=== PATIENT | female | born 1965 | race Caucasian/White ===

== ENCOUNTER 2023-11-24 10:40 | Outpatient (REF) | payer BC, SELFPAY ==
[2023-11-24 13:59] LABS: Basophils Absolute Auto 0.1 X10*3/uL (0.0-0.2); Basophils Percent Auto 0.9 % (0-2); Eosinophils Absolute Auto 0.1 X10*3/uL (0.0-0.4); Eosinophils Percent Auto 1.6 % (0-4); Hematocrit 41.2 % (37.0-47.0); Hemoglobin 13.4 g/dl (12.0-16.0); Imm Gran Abs Auto 0.03 X10*3/uL (0.00-0.03); Imm Gran Pct Auto 0.4 % (0.0-0.4); Lymphocytes Absolute Auto 1.7 X10*3/uL (1.2-4.9); Lymphocytes Percent Auto 22.4 % (20-40); MANUAL DIFF FLAG NO; Mean Corpuscular HGB Conc 32.5 g/dl (31.0-35.0); Mean Corpuscular Hemoglobin 30.2 pg (27.0-33.0); Mean Platelet Volume 10.8 fL (9.4-12.3); Monocytes Absolute Auto 0.4 X10*3/uL (0.1-1.2); Monocytes Percent Auto 5.5 % (2-11); Neutrophils Absolute Auto 5.2 x10*3/uL (2.0-8.3); Neutrophils Percent Auto 69.2 % (45-73); Platelet Count 232 X10*3/uL (160-400); Red Blood Count 4.43 X10*6/uL (4.20-5.50); Red Cell Distribution Width 13.2 % (11.0-16.0); White Blood Count 7.5 X10*3/uL (4.8-10.8)
[2023-11-24 14:37] LABS: Erythrocyte Sedimentation Rate 16 MM/HR (0-20)
[2023-11-24 14:53] LABS: Alanine Aminotransferase 34 U/L (0-31); Albumin Level 4.7 g/dL (3.5-5.0); Alkaline Phosphatase 87 U/L (39-117); Anion Gap 12 (12-20); Aspartate Amino Transferase 25 U/L (5-31); Bilirubin Total 0.3 mg/dL (0.0-1.0); Blood Urea Nitrogen 17 mg/dL (9-16); C Reactive Protein < 0.10 mg/dL (< or = 0.50); Calcium 10.2 mg/dL (8.4-10.2); Carbon Dioxide 24 mmol/L (22-29); Chloride 107 mmol/L (96-108); Estimated Glomerular Filt Rate 44; Glucose Random 91 mg/dL (60-115); Potassium 3.9 mmol/L (3.3-5.1); Sodium 139 mmol/L (135-145); Total Protein 7.9 g/dL (6.5-8.0)
[2023-11-25 09:05] LABS: HBS Num1 0.05 mIU/mL (0-7.99); HBc Num1 0.11 S/CO (0.00-0.79); HBsAGNum1 0.29 S/CO (0.00-0.99); Hepatitis A Antibody IgM 0.21 Index (0-0.79); Hepatitis B Core Antibody Nonreactive (Nonreactive); Hepatitis B Surface Antigen Negative (Negative); ~HepC Num1 0.31 S/CO (0.00-0.79); ~Hepatitis A Antibody IgM Nonreactive (Nonreactive); ~Hepatitis B Surface Antibody NONREACTIVE (Nonreactive); ~Hepatitis C Antibody Nonreactive (Nonreactive)
[2023-11-26 13:09] LABS: Cardiolipin IgG Ab <2.0 GPL-U/mL; Cardiolipin IgM Ab <2.0 MPL-U/mL
[2023-11-26 23:03] LABS: PTT (LAC) Screen 33 sec (<=40)
[2023-11-27 08:48] LABS: TS Negative Control Passed; TS Panel A 0; TS Panel B 0; TS Positive Control Passed; TSpotTB Negative (Negative)
[2023-11-27 11:03] LABS: Prot Elec - Albumin 4.2 g/dL (3.8-4.8); Prot Elec - Alpha1 0.3 g/dL (0.2-0.3); Prot Elec - Alpha2 0.8 g/dL (0.5-0.9); Prot Elec - Beta 1 0.5 g/dL (0.4-0.6); Prot Elec - Beta 2 0.4 g/dL (0.2-0.5); Prot Elec - Gamma 0.8 g/dL (0.8-1.7); Prot Elec - Total Protein 6.9 g/dL (6.1-8.1)
[2023-11-27 13:08] LABS: IgA 175 mg/dL (47-310); IgG 746 mg/dL (600-1640); IgM 169 mg/dL (50-300)
[2023-12-01 21:18] LABS: Beta-2 Glycoprotein IgA <2.0 U/mL (<20.0); Beta-2 Glycoprotein IgG <2.0 U/mL (<20.0); Beta-2 Glycoprotein IgM <2.0 U/mL (<20.0)
== END 2023-11-24 10:41 | disposition home or self-care (01) ==
LOC: HO.LAB 10:40
PROVIDERS: PCP Nurse Practitioner Family; Visit Provider Student in an Organized Health Care Education/Training Program
DX: Z11.7 Encounter for testing for latent tuberculosis infection (principal); Z11.59 Encounter for screening for other viral diseases; M34.1 CR(E)ST syndrome; I73.00 Raynaud's syndrome without gangrene; K21.9 Gastro-esophageal reflux disease without esophagitis; D68.61 Antiphospholipid syndrome; Z72.89 Other problems related to lifestyle
CPT/HCPCS: 36415; 80053; 82784; 84165; 85025; 85597; 85598; 85613; 85652; 85730; 86140; 86146; 86147; 86334; 86481; 86704; 86706; 86709; 86803; 87340

== ENCOUNTER 2023-11-24 10:40 | Outpatient (AMB) | payer BC, SELFPAY ==
--- NOTE | 2023-11-24 10:53 | A.OFFVIS_ITS ---
Intake Vital Signs 11/24/23 10:57 Height 5 ft 5 in Weight 158 lb 15.253 oz BMI 26.4 BP 106/64 Blood Pressure Location Rt brachial Position Sitting Comment Unable to measure O2 pt reports she has Raynauds. 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 Previously seen by Dr Valdez at [facility]. Denies fm hx of autoimmune disorders. 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 She states that she was diagnosed with Raynaud's affecting her hands and toes when she was in her 20s. She states that she has had GERD for many years. She had a esophageal procedure for her GERD, likely fundoplication around 2016. She states that she has had constipation for many years. She would have weeks of constipation and episodes with repeated vomiting. She would get admitted for a few days and symptoms would eventually resolved. However in 2019, she became septic and eventually had a total colectomy s/p ileostomy. Since then she has not had any significant diarrhea or constipation. She continues to have GERD. She has known history of Fish's esophagus. She takes omeprazole daily. She states that she sleeps using 2 pillows. Wakes up with a cough. She states that she has been a little more short of breath recently, her blood pressure was elevated and her PCP started her on lisinopril 10 mg daily with improvement of blood pressure and her shortness of breath. 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 She has pain both elbows, she has calcium deposits on both elbows, which are painful as well as calcium deposits on the left thumb and right ring finger. She states that she continues to have Raynaud's episodes. She uses gloves and glove warmers. Has not had any recent episodes of prolonged ischemia. She denies any skin thickening. She has been having some pain in the base of both thumbs and her knees. She is unaware of any family history of autoimmune rheumatic disease. She denies any weight loss or fevers. She had 2 pregnancies and no abortions or miscarriages. [facility] Medical History (Updated 11/24/23 @ 11:54 by Darryl Hood MD) Hypertension Barretts esophagus GERD (gastroesophageal reflux disease) Anxiety Migraine Raynaud phenomenon Calcinosis cutis CREST syndrome Ileostomy in place Surgical History History of fundoplication History of repair of hiatal hernia H/O total colectomy Family History Mother Hx of hysterectomy Father Diabetes Myocardial infarction, Onset Age: 60 Sister Malignant neoplasm of uterus Social History Household Members: Spouse Alcohol intake: current Alcohol intake frequency: a few times a week Patient Tobacco Use Status: Current everyday Tobacco user Cigarettes Per Day: 10 Current occupational status: employed 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 Reproductive History Menstrual Total pregnancies: 2 Number of Living Children: 2 Review of Systems Const Denies fever(s) and Denies weight loss Card Reports dyspnea on exertion Resp Reports dyspnea on exertion GI Reports heartburn Musc Reports arthralgias Skin/Breast Reports lesions and Reports non-healing lesions Psych Reports anxiety Physical Exam Vital Signs: Last Vital Signs BP 106/64 11/24/23 10:57 BMI result Body Mass Index 26.4 Const General: cooperative, healthy appearing and comfortable Nutritional Appearance: overweight Orientation/consciousness: patient oriented x3 Limitations: no limitations HEENT Head: Yes normocephalic and Yes atraumatic Mouth: moist mucous membranes Resp Effort & Inspection: normal respiratory effort and able to speak in complete sentences Auscultation: clear to auscultation bilaterally Cardio Rate: regular rate Rhythm: regular rhythm GI Other: Ileostomy Inspection: No distended Palpation (GI): Soft to palpation and nontender Skin Other: Multiple telangiectasias Calcinosis cutis on elbows, right ring finger and left thumb Neuro General: patient oriented x3 Extrem Other: Mild dusky discoloration of hands but her fingers are warm. No active synovitis Mild pain at the 1st CMC joint on the right. No active synovitis No significant skin thickening. Normal nailfold capillaroscopy Results Reviewed Results Reviewed: Labs 11/2021? SHIVA 1-12 80 centromere pattern? SHIVA 1-80 dense fine speckled ELBA negative Centromere antibody positive Skin biopsy 11/2021: calcinosis cutis Labs 12/2021? SSA/SSB/CCP/Rajwinder 1/RF/Ragland/MANAGER OF DEVELOPMENT negative? Scleroderma 12 antibody panel all negative except for centromere A and B C3 normal? C4 normal LDL 118? 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 Discussed nature of scleroderma and different management strategies. Check labs today. With regard to her calcinosis cutis. Will try diltiazem. Will reduce lisinopril to 5 mg daily and start diltiazem 30 mg daily. Advised patient to check her blood pressure before and after starting diltiazem. All us if she develops any lightheadedness or side effects. Advised patient to soak her fingers are warm water when calcium deposits are coming out. Use cloth based Band-Aids. Use Silvadene on any open wounds Discussed risk of pulmonary arterial hypertension and interstitial lung disease with scleroderma. Patient had CT chest, 2D echo and PFTs back in 2021 at [facility]. Will request those records. (2) Raynaud phenomenon: Comment: since her 20s Code(s): I73.00 - Raynaud's syndrome without gangrene Qualifiers: Raynaud?s-associated gangrene presence: without gangrene Qualified Code(s): I73.00 - Raynaud's syndrome without gangrene Plan: Discussed conservative management for Raynaud's such as keeping core and extremity temperature warm. Wear gloves and glove warmers, consider heated gloves. (3) GERD (gastroesophageal reflux disease): Code(s): K21.9 - Gastro-esophageal reflux disease without esophagitis Plan: Advised patient to sleep more elevated. Discussed risk of aspiration with esophageal dysmotility. Continue with omeprazole daily. Can consider increasing it to twice daily the future Plan I spent 65 minutes reviewing patient's chart, evaluating patient, ordering diagnostic workup, counseling patient and documenting in the chart Orders: Orders Complete Blood Count Auto Diff Today M34.1 - CR(E)ST syndrome C Reactive Protein Today M34.1 - CR(E)ST syndrome Erythrocyte Sedimentation Rate Today M34.1 - CR(E)ST syndrome Beta-2 Glycoprotein Antibody Today D68.61 - Antiphospholipid syndrome Cardiolipin Antibodies Today D68.61 - Antiphospholipid syndrome Comprehensive Met. Panel Today M34.1 - CR(E)ST syndrome Hepatitis A,B,C Profile Today Z11.59 - Encounter for screening for other viral diseases T Spot TB Today Z11.7 - Encounter for testing for latent tuberculosis infection Protein Electrophoresis, Serum Today M34.1 - CR(E)ST syndrome Immunofixation Pnl, Serum Today M34.1 - CR(E)ST syndrome Lupus Anticoagulant Panel Today D68.61 - Antiphospholipid syndrome Medications: New lisinopril 5 mg PO DAILY 60 tabs 1RF diltiazem HCl 30 mg PO Q8H 30 tabs 1RF Coding Level of Care Code New Pt Level 5 (61679) Diagnoses CREST syndrome M34.1 Raynaud's phenomenon without gangrene I73.00 Raynaud?s-associated gangrene presence: without gangrene GERD (gastroesophageal reflux disease) K21.9
[2023-11-24 10:57] VITALS: BP 106/64; BMI 26.4
== END 2023-11-24 11:42 | disposition home or self-care (01) ==
PROVIDERS: PCP Nurse Practitioner Family; Visit Provider Student in an Organized Health Care Education/Training Program
DX: M34.1 CR(E)ST syndrome (principal); I73.00 Raynaud's syndrome without gangrene; K21.9 Gastro-esophageal reflux disease without esophagitis
CPT/HCPCS: 99205

== ENCOUNTER 2024-01-25 15:46 | Outpatient (AMB) | payer BC, SELFPAY ==
--- NOTE | 2024-01-25 15:47 | A.OFFVIS_ITS ---
Intake Vital Signs 01/25/24 15:48 Height 5 ft 5 in Weight 159 lb 2.78 oz BMI 26.5 BP 114/60 Blood Pressure Location Rt brachial Position Sitting Pulse 100 Pulse Source Auscultation Temp 97.5 F Temp Source Skin Intake Visit Reasons: CREST Intake Note: Patient last seen 11/24/23 presents today for follow up and test results. 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 Accompanied by: Self / Same As Patient Allergies minocycline Allergy (Mild, Verified 01/25/24 15:48) Hives sulfamethoxazole [From Bactrim] Allergy (Mild, Verified 01/25/24 15:48) Rash trimethoprim [From Bactrim] Allergy (Mild, Verified 01/25/24 15:48) Rash Sulfa (Sulfonamide Antibiotics) Allergy (Verified 01/25/24 15:48) Rash Medication List - Last Reconciled 01/25/24 by Darryl Hood MD atorvastatin 20 mg PO DAILY colchicine 0.6 mg PO BID lisinopril 5 mg (1/2 x 10 mg) PO DAILY omeprazole 40 mg PO DAILY sertraline 50 mg PO DAILY HPI HPI Comments History of Present Illness Details 58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 Started taking diltiazem after last visit. She did not feel any difference. She continues to have significant calcinosis, she believes it is worsening. The 1 on her left elbow hurts when her elbow rubs against her jacket and when moving her left elbow. She has a piece of calcinosis trying to get out of her right hand finger. 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 She states that she was diagnosed with Raynaud's affecting her hands and toes when she was in her 20s. She states that she has had GERD for many years. She had a esophageal procedure for her GERD, likely fundoplication around 2017. She states that she has had constipation for many years. She would have weeks of constipation and episodes with repeated vomiting. She would get admitted for a few days and symptoms would eventually resolved. However in 2019, she became septic and eventually had a total colect landy s/p ileostomy. Since then she has not had any significant diarrhea or constipation. She continues to have GERD. She has known history of Fish's esophagus. She takes omeprazole daily. She states that she sleeps using 2 pillows. Wakes up with a cough. She states that she has been a little more short of breath recently, her blood pressure was elevated and her PCP started her on lisinopril 10 mg daily with improvement of blood pressure and her shortness of breath. 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 She has pain both elbows, she has calcium deposits on both elbows, which are painful as well as calcium deposits on the left thumb and right ring finger. She states that she continues to have Raynaud's episodes. She uses gloves and glove warmers. Has not had any recent episodes of prolonged ischemia. She denies any skin thickening. She has been having some pain in the base of both thumbs and her knees. She is unaware of any family history of autoimmune rheumatic disease. She denies any weight loss or fevers. She had 2 pregnancies and no abortions or miscarriages. [facility] Medical History Hypertension Barretts esophagus GERD (gastroesophageal reflux disease) Anxiety Migraine Raynaud phenomenon Calcinosis cutis CREST syndrome Ileostomy in place Surgical History History of fundoplication History of repair of hiatal hernia H/O total colectomy Family History Mother Hx of hysterectomy Father Diabetes Myocardial infarction, Onset Age: 60 Sister Malignant neoplasm of uterus Social History Household Members: Spouse Alcohol intake: current Alcohol intake frequency: a few times a week Patient Tobacco Use Status: Current everyday Tobacco user Cigarettes Per Day: 10 Current occupational status: employed 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 Reports arthralgias Skin/Breast Reports lesions and Reports non-healing lesions Physical Exam Vital Signs: Last Vital Signs Temp 97.5 F 01/25/24 15:48 Pulse 100 01/25/24 15:48 BP 114/60 01/25/24 15:48 BMI result Body Mass Index 26.5 Const General: cooperative, healthy appearing and comfortable Nutritional Appearance: overweight Orientation/consciousness: patient oriented x3 Limitations: no limitations HEENT Head: Yes normocephalic and Yes atraumatic Mouth: moist mucous membranes Resp Effort & Inspection: normal respiratory effort and able to speak in complete sentences Auscultation: clear to auscultation bilaterally Cardio Rate: regular rate Rhythm: regular rhythm GI Other: Ileostomy Inspection: No distended Palpation (GI): Soft to palpation and nontender Skin Other: Multiple telangiectasias Calcinosis cutis on elbows, right ring finger and left thumb Neuro General: patient oriented x3 Extrem Other: Mild dusky discoloration of hands but her fingers are warm. No active synovitis Mild pain at the 1st CMC joint on the right. No active synovitis No significant skin thickening. Normal nailfold capillaroscopy Results Reviewed Results Reviewed: Labs 11/2021? SHIVA 1-12 80 centromere pattern? SHIVA 1-80 dense fine speckled ELBA negative Centromere antibody positive Skin biopsy 11/2021: calcinosis cutis Labs 12/2021? SSA/SSB/CCP/Rajwinder 1/RF/Ragland/SHERIFF DETECTIVE negative? Scleroderma 12 antibody panel all negative except for centromere A and B C3 normal? C4 normal LDL 118? 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 Discussed nature of scleroderma and different management strategies. Patient did not improve with diltiazem. She was allergic to minocycline. Will DC diltiazem and increase lisinopril back to 10 mg daily. Start colchicine 0.6 mg Twice daily, reduce to once daily dose if she develops GI upset/loose stools. Advised patient to soak her fingers are warm water when calcium deposits are coming out. Use cloth based Band-Aids. Use Silvadene on any open wounds Discussed risk of pulmonary arterial hypertension and interstitial lung disease with scleroderma. Patient had CT chest, 2D echo and PFTs back in 2021 which were unremarkable except for mildly reduced DLCO not adjusted for hemoglobin. Will repeat 2D echo and PFTs to screen for ILD/PAH. (2) Raynaud phenomenon: Comment: since her 20s Code(s): I73.00 - Raynaud's syndrome without gangrene Qualifiers: Raynaud?s-associated gangrene presence: without gangrene Qualified Co de(s): I73.00 - Raynaud's syndrome without gangrene Plan: Discussed conservative management for Raynaud's such as keeping core and ex tremity temperature warm. Wear gloves and glove warmers, consider heated gloves. Plan I spent 25 minutes reviewing patient's chart, evaluating patient, ordering diagnostic workup, counseling patient and documenting in the chart Orders: Orders CA echo transthoracic complete Today M34.1 - CR(E)ST syndrome PFT pulmonary function test Today M34.1 - CR(E)ST syndrome, R06.02 - Shortness of breath Medications: New colchicine 0.6 mg PO BID 60 tabs 2RF Changed From lisinopril 5 mg PO DAILY 90 tabs 0RF To lisinopril 5 mg (1/2 x 10 mg) PO DAILY 90 tabs 0RF Refilled lisinopril 5 mg PO DAILY 90 tabs 0RF Discontinued diltiazem HCl Discontinued Reason: Doctor's Order 30 mg PO Q8H 30 tabs 1RF Coding Level of Care Code Est Pt Level 4 (27266) Diagnoses CREST syndrome M34.1 Raynaud's phenomenon without gangrene I73.00 Raynaud?s-associated gangrene presence: without gangrene
[2024-01-25 15:48] VITALS: BP 114/60; PULSE 100; TEMP 36.4; BMI 26.5
== END 2024-01-25 16:20 | disposition home or self-care (01) ==
PROVIDERS: PCP Nurse Practitioner Family; Visit Provider Student in an Organized Health Care Education/Training Program
DX: M34.1 CR(E)ST syndrome (principal); I73.00 Raynaud's syndrome without gangrene
CPT/HCPCS: 99214

== ENCOUNTER → 2024-01-25 15:46 | Outpatient (BNVA) | payer BC, SELFPAY | PROVIDERS: PCP Nurse Practitioner Family; Visit Provider Student in an Organized Health Care Education/Training Program ==

== ENCOUNTER → 2024-04-22 07:48 | Outpatient (REF) | payer BC, SELFPAY ==
--- NOTE | 2024-04-22 07:51 | CA_ITS ---
Transthoracic Echocardiogram Patient (Last, First, Middle): Sherrie Trejo, Gender: Female Date of : 1965 Age: 58 Procedure Date: 04/22/2024 Procedure Type: Transthoracic Echocardiogram Location: OP Height: 165.1 cm Weight: 70.31 kg BSA: 1.78 m2 Heart Rate: 68 bpm BP: 110 / 70 mmHg Paper Cleaner: SUZI Referring MD: Darryl Hood MD Symptoms: M34.1 - CR(E)ST syndrome Study Quality: Fair ECG Rhythm: Sinus Conclusions: - Normal left ventricular size and systolic function. There is mildly increased left ventricular wall thickness. The visually estimated ejection fraction is between 55-60%. - Normal right ventricular cavity size and systolic function. - Normal global longitudinal strain -18%. Findings Left Ventricle Normal left ventricular size and systolic function. There is mildly increased left ventricular wall thickness. The visually estimated ejection fraction is between 55-60%. There is no evidence of regional wall motion abnormalities. Diastolic function is normal for age. Right Ventricle Normal right ventricular cavity size and systolic function. Atria The left atrium is normal in size. The right atrium is normal in size. Aortic Valve Normal aortic valve structure and function. There is no aortic valve stenosis. There is no aortic valve regurgitation. Mitral Valve The mitral valve appears normal. There is no mitral valve regurgitation. There is no mitral valve stenosis. Pulmonic Valve The pulmonic valve is likely normal. Tricuspid Valve Normal tricuspid valve structure. There is trace tricuspid valve regurgitation. Tricuspid regurgitation envelope is inadequate for calculation of right ventricular systolic pressure. Normal right atrial pressure. Great Vessels All visible segments of the aorta are normal in size. The visualized portions of the pulmonary artery and branches are normal. Venous The inferior vena cava is normal in size and collapses greater than 50% with inspiration. Pericardium/Pleural Prominent epicardial adipose tissue noted. There is no evidence of pericardial effusion. Prior Study Comparison No prior study available for comparison. Measurements 2D Linear Measurements IVSd: 1.20 0.6-0.9/0.6-1.0 cm LVIDd: 3.21 3.9-5.3/4.2-5.9 cm LVIDd Index: 1.80 2.4-3.2/2.2-3.1 cm/m2 LVIDs: 1.81 2.0-3.6 cm LVPWd: 1.31 0.7-1.1 cm LA Diam: 3.00 2.7-3.8/3.0-4.0 cm LAIDs Index: 1.69 1.5-2.3 cm/m2 LV Mass: 160.24 67-162/88-224 g LV Mass Index: 90.02 43-95/49-115 g/m2 LVOT Diam: 2.00 3.0+(-)1.3 cm 2D Systolic Function EF 4C: 65.10 >55% EF 2C: 59.40 >55% EF BiP: 63.10 >55% Mitral Valve MV Pk E: 0.82 MV PK A: 0.84 MV Decel Time: 255.00 E/A: 1.00 E'Lateral: 9.57 E'Medial: 7.40 E/E' Med: 11.10 E/E' Lat: 8.50 PHT: 75.00 MVA PHT: 2.93 Decel [place]: 3.21 Aortic Valve AoV Pk Buck: 1.07 AoV Mn Buck: 0.79 AoV VTI: 0.26 AoV Pk Grad: 5.00 Aov Mn Grad: 3.00 MARIAN Cont.VTI: 2.46 LVOT LVOT Pk Buck: 0.98 LVOT Mn Buck: 0.63 LVOT VTI: 0.21 LVOT Pk Grad: 4.00 LVOT Mn Grad: 2.00 LVOT Diam: 2.00 LVOT Area: 3.14 Diastolic Function MV Pk E: 0.82 MV Pk A: 0.84 E/A: 1.00 E'Medial: 7.40 E/E' Med: 11.10 E' Laterial: 9.57 E/E' Lat: 8.50 Right Ventricle TAPSE (mm): 16.90 TVS' Buck: 8.70 Tricuspid Valve RA Press: 3.00 Great Vessels Aorta Sinus of Valsalva: 3.00 2.0-3.5 cm Ao Asc: 2.90 2.1-3.4 cm Pulmonary Valve PV Pk Buck: 0.81 Peak PV Grad: 3.00 Updated in Other Vendor System with Status of Final Jose D Boudreaux MD electronically signed on 04/23/2024 10:59:30 PM with status of Final
== END ==
LOC: HO.CARD 07:48
PROVIDERS: PCP Nurse Practitioner Family; Visit Provider Student in an Organized Health Care Education/Training Program
DX: M34.1 CR(E)ST syndrome (principal)
CPT/HCPCS: 93306; 93356

== ENCOUNTER → 2024-04-22 07:51 | Outpatient (BNV) | payer BC, SELFPAY | PROVIDERS: PCP Nurse Practitioner Family; Visit Provider Internal Medicine Cardiovascular Disease | DX: M34.1 CR(E)ST syndrome (principal) | CPT/HCPCS: 93306 ==

== ENCOUNTER 2024-05-03 07:27 | Outpatient (AMB) | payer BC, SELFPAY ==
[2024-05-03 07:45] VITALS: BP 108/68; PULSE 80; BMI 26.1
--- NOTE | 2024-05-03 07:45 | A.OFFVIS_ITS ---
Vital Signs 05/03/24 07:45 Height 5 ft 5 in Weight 156 lb 15.506 oz BMI 26.1 BP 108/68 Blood Pressure Location Rt brachial Position Sitting Pulse 80 Pulse Source Pulse Oximeter Intake Visit Reasons: CREST/LVM Intake Note: Patient last seen 01/25/24 presents today for follow up. 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 She continues to be symptomatic from her calcinosis cutis especially at the left elbow. She gets aching throbbing pain the base of her right thumb. Usually worse at night. She is doing well otherwise. Denies any cough or shortness of breath. 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 She states that she was diagnosed with Raynaud's affecting her hands and toes when she was in her 20s. She states that she has had GERD for many years. She had a esophageal procedure for her GERD, likely fundoplication around 2017. She states that she has had constipation for many years. She would have weeks of constipation and episodes with repeated vomiting. She would get admitted for a few days and symptoms would eventually resolved. However in 2019, she became septic and eventually had a total colectomy s/p ileostomy. Since then she has not had any significant diarrhea or constipation. She continues to have GERD. She has known history of Fish's esophagus. She takes omeprazole daily. She states that she sleeps using 2 pillows. Wakes up with a cough. She states that she has been a little more short of breath recently, her blood pressure was elevated and her PCP started her on lisinopril 10 mg daily with improvement of blood pressure and her shortness of breath. 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 She has pain both elbows, she has calcium deposits on both elbows, which are painful as well as calcium deposits on the left thumb and right ring finger. She states that she continues to have Raynaud's episodes. She uses gloves and glove warmers. Has not had any recent episodes of prolonged ischemia. She denies any skin thickening. She has been having some pain in the base of both thumbs and her knees. She is unaware of any family history of autoimmune rheumatic disease. She denies any weight loss or fevers. She had 2 pregnancies and no abortions or miscarriages. [facility] Medical History Hypertension Barretts esophagus GERD (gastroesophageal reflux disease) Anxiety Migraine Raynaud phenomenon Calcinosis cutis CREST syndrome Ileostomy in place Surgical History History of fundoplication History of repair of hiatal hernia H/O total colectomy Family History Mother Hx of hysterectomy Father Diabetes Myocardial infarction, Onset Age: 60 Sister Malignant neoplasm of uterus Social History Household Members: Spouse Alcohol intake: current Alcohol intake frequency: a few times a week Patient Tobacco Use Status: Current everyday Tobacco user Cigarettes Per Day: 10 Current occupational status: employed 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 Reproductive History Menstrual Total pregnancies: 2 Number of Living Children: 2 Review of Systems Card Denies dyspnea Resp Denies cough and Denies dyspnea Musc Reports arthralgias Skin/Breast Reports lesions and Reports non-healing lesions Physical Exam Vital Signs: Last Vital Signs Pulse 80 05/03/24 07:45 BP 108/68 05/03/24 07:45 BMI result Body Mass Index 26.1 Const General: cooperative, healthy appearing and comfortable Nutritional Appearance: overweight Orientation/consciousness: patient oriented x3 Limitations: no limitations HEENT Head: Yes normocephalic and Yes atraumatic Mouth: moist mucous membranes Resp Effort & Inspection: normal respiratory effort and able to speak in complete sentences Auscultation: clear to auscultation bilaterally Cardio Rate: regular rate Rhythm: regular rhythm GI Other: Ileostomy Inspection: No distended Palpation (GI): Soft to palpation and nontender Skin Other: Multiple telangiectasias Calcinosis cutis on elbows, right ring finger and left thumb Neuro General: patient oriented x3 Extrem Other: Mild dusky discoloration of hands but her fingers are warm. No active synovitis Mild pain at the 1st CMC joint on the right. No active synovitis No significant skin thickening. Normal nailfold capillaroscopy Results Reviewed Results Reviewed: Labs 11/2021? SHIVA 1-12 80 centromere pattern? SHIVA -80 dense fine speckled ELBA negative Centromere antibody positive Skin biopsy 11/2021: calcinosis cutis Labs 12/2021? SSA/SSB/CCP/Rajwinder 1/RF/Ragland/MERCHANDISE DELIVERER negative? Scleroderma 12 antibody panel all negative except for centromere A and B C3 normal? C4 normal LDL 118? 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 Patient is doing well overall. What seems to be most troublesome is her calcinosis cutis Patient did not improve with diltiazem. She was allergic to minocycline. Also did not improve with colchicine. I will refer patient to hand surgeon for further evaluation Discussed risk of pulmonary arterial hypertension and interstitial lung disease with scleroderma. Patient had CT chest, 2D echo and PFTs back in 2021 which were unremarkable except for mildly reduced DLCO not adjusted for hemoglobin. 2D echo 04/2024 unremarkable with no signs suggestive of pulmonary arterial hypertension. PFTs not done. Patient will try to get it done in [facility] before next visit in 6 months (2) Raynaud phenomenon: Comment: since her 20s Code(s): I73.00 - Raynaud's syndrome without gangrene Category: Medical Qualifiers: Raynaud?s-associated gangrene presence: without gangrene Qualified Code(s): I73.00 - Raynaud's syndrome without gangrene Plan: Discussed conservative management for Raynaud's such as keeping core and extremity temperature warm. Wear gloves and glove warmers, consider heated gloves. (3) Osteoarthritis of thumbs, bilateral: Code(s): M18.0 - Bilateral primary osteoarthritis of first carpometacarpal joints Category: Medical Plan: Voltaren gel trial Plan I spent 25 minutes reviewing patient's chart, evaluating patient, ordering diagnostic workup, counseling patient and documenting in the chart Orders: Orders Complete Blood Count Auto Diff 6 Months M34.1 - CR(E)ST syndrome C Reactive Protein 6 Months M34.1 - CR(E)ST syndrome Uric Acid 6 Months M34.1 - CR(E)ST syndrome Comprehensive Met. Panel 6 Months M34.1 - CR(E)ST syndrome Creatine Kinase Total 6 Months M34.1 - CR(E)ST syndrome Erythrocyte Sedimentation Rate 6 Months M34.1 - CR(E)ST syndrome Referrals Hand Surgery Referral L94.2 - Calcinosis cutis Coding Level of Care Code Est Pt Level 4 (90479) Diagnoses CREST syndrome M34.1 Raynaud's phenomenon without gangrene I73.00 Raynaud?s-associated gangrene presence: without gangrene Osteoarthritis of thumbs, bilateral M18.0
== END 2024-05-03 08:07 | disposition home or self-care (01) ==
PROVIDERS: PCP Nurse Practitioner Family; Visit Provider Student in an Organized Health Care Education/Training Program
DX: M34.1 CR(E)ST syndrome (principal); I73.00 Raynaud's syndrome without gangrene; M18.0 Bilateral primary osteoarthritis of first carpometacarpal joints
CPT/HCPCS: 99214

== ENCOUNTER → 2024-05-03 07:27 | Outpatient (BNVA) | payer BC, SELFPAY | PROVIDERS: PCP Nurse Practitioner Family; Visit Provider Student in an Organized Health Care Education/Training Program ==

== ENCOUNTER 2024-06-15 08:49 | Outpatient (REF) | payer BC, SELFPAY ==
--- NOTE | ~2024-06-15 | XR_ITS ---
EXAMINATION: XR BILATERAL HANDS CLINICAL INDICATION: Patient states pain in bilateral thumbs and right hand 4th digit. TECHNIQUE: 4 views of the left hand. 6 views of the right hand and thumb. FINDINGS: LEFT HAND: Multiple [id number] foci of conglomerate densities, possibly calcification, in the soft tissues of the mid to distal aspect of the left thumb. Grouped tiny punctate radiodense foci in the soft tissues of the 2nd digit distal tuft. Small 2 mm density in the soft tissues along the volar aspect of the metacarpals. Moderate degenerative changes in the 1st carpometacarpal joint with joint space narrowing and hypertrophic change. RIGHT HAND: Moderate degenerative changes in the 1st carpometacarpal joint with joint space narrowing and hypertrophic change. Multiple conglomerate densities, possibly calcifications, most notable in the soft tissues adjacent to the distal tuft of the right 1st and 4th digits with smaller scattered calcifications also seen adjacent to the 2nd digit distal tuft. XR/XR hand LT min 3V IMPRESSION: Conglomerate densities, possibly calcifications most notable in the soft tissues adjacent to the distal tuft of the right 1st and 4th digits and left thumb. Differential considerations include trauma, collagen vascular disease, crystal deposition disease, infection or other etiology. Rheumatology consultation recommended for further management. Electronically signed by: Ariana Gonsales MD 07/12/2024 02:07 PM EDT RP
--- NOTE | ~2024-06-15 | XR_ITS ---
EXAMINATION: XR BILATERAL HANDS CLINICAL INDICATION: Patient states pain in bilateral thumbs and right hand 4th digit. TECHNIQUE: 4 views of the left hand. 6 views of the right hand and thumb. FINDINGS: LEFT HAND: Multiple wzqtqhpk-fm-mirbb foci of conglomerate densities, possibly calcification, in the soft tissues of the mid to distal aspect of the left thumb. Grouped tiny punctate radiodense foci in the soft tissues of the 2nd digit distal tuft. Small 2 mm density in the soft tissues along the volar aspect of the metacarpals. Moderate degenerative changes in the 1st carpometacarpal joint with joint space narrowing and hypertrophic change. RIGHT HAND: Moderate degenerative changes in the 1st carpometacarpal joint with joint space narrowing and hypertrophic change. Multiple conglomerate densities, possibly calcifications, most notable in the soft tissues adjacent to the distal tuft of the right 1st and 4th digits with smaller scattered calcifications also seen adjacent to the 2nd digit distal tuft. XR/XR hand RT min 3V IMPRESSION: Conglomerate densities, possibly calcifications most notable in the soft tissues adjacent to the distal tuft of the right 1st and 4th digits and left thumb. Differential considerations include trauma, collagen vascular disease, crystal deposition disease, infection or other etiology. Rheumatology consultation recommended for further management. Electronically signed by: Ariana Gonsales MD 07/12/2024 02:07 PM EDT RP
== END 2024-06-15 08:50 | disposition home or self-care (01) ==
LOC: HO.HOSX 08:49
PROVIDERS: PCP Nurse Practitioner Family; Visit Provider Orthopaedic Surgery
DX: M79.641 Pain in right hand (principal); M79.642 Pain in left hand
CPT/HCPCS: 73130

== ENCOUNTER 2024-06-15 09:17 | Outpatient (AMB) | payer BC, SELFPAY ==
--- NOTE | 2024-06-15 09:20 | MHC.OFFVIS ---
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 Patient reports numbness and tingling when her hands are cold. Denies locking on finger. Patient describes pain as not bad, on most days. Patient states her hands hurt the most when they are cold. Patient reports hx Raynauds. Denies any prior injuries or surgeries. 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 She complains primarily of painful growths to her bilateral elbows. She finds herself limited in elbow ROM by pain occasionally. She also complains of painful growths to her bilateral hands, particularly the left thumb & right ring finger. She says these cause her pain, and is worse when cold. She has CREST syndrome & Raynaud's disease. She follows with Rheumatology for these symptoms, and she found no improvement from PO medication for her growths. She is a smoker. She has a Hx of a biopsy in the past, and she says her removed growth did not return. She describes herself as a peanut picker and says she will often pick at her growths & scabs when she finds them more uncomfortable. [facility] Medical History Hypertension Barretts esophagus GERD (gastroesophageal reflux disease) Anxiety Migraine Raynaud phenomenon Calcinosis cutis CREST syndrome Ileostomy in place Surgical History History of fundoplication History of repair of hiatal hernia H/O total colectomy Family History Mother Hx of hysterectomy Father Diabetes Myocardial infarction, Onset Age: 60 Sister Malignant neoplasm of uterus Social History (Updated 06/15/24 @ 09:25 by CHRIS Soares) Household Members: Spouse Alcohol intake: current Alcohol intake frequency: a few times a week Patient Tobacco Use Status: Current everyday Tobacco user Cigarettes Per Day: 10 Current occupational status: employed 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, 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 Review of Systems Const All systems reviewed & are unremarkable except as noted in HPI and below Physical Exam Vital Signs: BMI result Body Mass Index 26.0 Const General: cooperative, healthy appearing and no acute distress Orientation/consciousness: patient oriented x3 HEENT Head: Yes normocephalic and Yes atraumatic Eyes EOM: EOMs intact bilaterally Resp Effort & Inspection: normal respiratory effort and able to speak in complete sentences Cardio Jugular venous distension: no JVD Skin General skin exam: turgor normal Rashes: no rashes Neuro General: patient oriented x3 Extrem Other: Evaluation of Left Upper Extremity: The patient is alert, oriented, and in no acute distress Neuro: Median, Ulnar, Radial nerves motor and sensory intact and sensation is normal to the tips of all digits Vascular: Cap refill brisk ROM: She can make a fist and extend all her digits No locking or catching Skin: No lacerations or abrasions. General: No Ecchymosis. No Erythema or evidence of infection. There is an area of calcification to the left elbow, measuring 3cm length x 1.5cm width, and protruding ~1cm, at the proximal aspect of the ulna There is a palpable mass in the left thumb pad, at the tip, and along the volar ulnar aspect at the proximal phalanx level Of note, the skin at tip of the olecranon very tender, no discrete mass, I would likely not be going into the tip of the skin of the olecranon, instead just distal to this area for mass removal Radiographs: Three views of the left hand were taken today and reviewed by me in clinic. She has calcifications consistent with calcinosis cutis primarily involving the distal aspect of the thumb, as well as the volar ulnar area of the thumb just proximal to the IP joint. There are also some calcifications, though much smaller, the tip of the index finger. No fractures or dislocations. Psych Appearance: grossly normal Affect: normal affect Attitude: cooperative Assessment & Plan Assessment & Plan (1) Calcinosis cutis: Code(s): L94.2 - Calcinosis cutis Category: Medical (2) CREST syndrome: Comment: Raynaud's since 20s, calcinosis cutis, esophageal dysmotility, telangiectasias +++ centromere antibody Code(s): M34.1 - CR(E)ST syndrome Category: Medical (3) Raynaud phenomenon: Comment: since her 20s Code(s): I73.00 - Raynaud's syndrome without gangrene Category: Medical Qualifiers: Raynaud?s-associated gangrene presence: without gangrene Qualified Code(s): I73.00 - Raynaud's syndrome without gangrene Plan Assessment & Plan: 1. Left proximal forearm Calcinosis cutis 2. Left thumb calcinosis cutis x2 3. Right forearm and hand Calcinosis cutis Affecting bilateral elbows & hands Her primary complaint is of her left elbow and thumb I educated her about this condition I discussed operative and non-operative treatment options The patient would like to proceed with surgery, beginning with the left side. We can discuss treatment for her right upper extremity at a later date The risks and benefits of operative treatment were discussed with the patient and the patient wishes to proceed with surgery. These risks include, but are not limited to risk of damage to blood vessels, nerves, tendons, infection, recurrence, incomplete relief of preoperative symptoms, persistent pain, possible need for further surgery and the risks associated with regional blocks and anesthesia. The plan is to take the patient to the operating room sometime in the next few weeks for the following procedures: 1. Left proximal forearm mass excision, under general 2. Left thumb mass excisions X2, under general 3. Possible left thumb neurolysis (ulnar digital nerve), under general All of the preoperative paperwork including the consent was reviewed today. All the patient's questions were answered. The patient understands that they will be contacted by our surgery attendant soon to schedule this procedure. She would like this done in the latter half of She denies Diabetes, blood thinners, asthma, heart, lung, kidney issues She has CREST syndrome & Raynaud's syndrome, and follows with Rheumatology She is a smoker, I discussed the effects & risks of smoking, particularly in regard to her Calcinosis cutis & Raynaud's disease, including possible necrosis. She expressed understanding and says she will work towards quitting smoking prior to surgery. Please note that greater than 40 minutes was spent with this patient going over the history, evaluating the patient and radiographs, formulating possible treatment options, discussing them with the patient, and documenting the visit. Scribed for Sandy Gallo MD by Colby Kilgore, medical imaging technician, on 06/15/24 at 9:30 AM, EST. Orders: Orders XR hand RT min 3V Today M79.641 - Pain in right hand XR hand LT min 3V Today M79.642 - Pain in left hand Coding Level of Care Code New Pt Level 4 (59803) Diagnoses Calcinosis cutis L94.2 CREST syndrome M34.1 Raynaud's phenomenon without gangrene I73.00 Raynaud?s-associated gangrene presence: without gangrene
[2024-06-15 09:22] VITALS: BMI 26.0
== END 2024-06-15 09:59 | disposition home or self-care (01) ==
PROVIDERS: PCP Nurse Practitioner Family; Visit Provider Orthopaedic Surgery
DX: M34.1 CR(E)ST syndrome (principal); I73.00 Raynaud's syndrome without gangrene
CPT/HCPCS: 99204

== ENCOUNTER 2024-09-21 11:13 | Outpatient (AMB) | payer BC, SELFPAY ==
[2024-09-21 11:32] VITALS: BMI 26.0
--- NOTE | 2024-09-21 11:32 | MHC.OFFVIS ---
Vital Signs 09/21/24 11:32 Height 5 ft 5 in Weight 156 lb BMI 26.0 Intake Visit Reasons: Preop LT thumb exc/forearm exc 10/03/24 AR Intake Note: Sherrie is a 59 yo left hand dominant female who presents today pre-operatively for left thumb mass excision and left proximal forearm mass excision scheduled for 10/03/[address] Gallo. Consents reviewed and signed in office today. Allergies minocycline Allergy (Mild, Verified 09/21/24 11:33) Hives sulfamethoxazole [From Bactrim] Allergy (Mild, Verified 09/21/24 11:33) Rash trimethoprim [From Bactrim] Allergy (Mild, Verified 09/21/24 11:33) Rash Sulfa (Sulfonamide Antibiotics) Allergy (Verified 09/21/24 11:33) Rash HPI HPI Preop LT thumb exc/forearm exc 10/03/24 AR: Details: Sherrie is a 59 year old right hand dominant woman who returns to discuss her left upper extremity calcinosis cutis. She complains primarily of painful growths to her bilateral elbows. She finds herself limited in elbow ROM by pain occasionally. She also complains of painful growths to her bilateral hands, particularly the left thumb & right ring finger. She says these cause her pain, and is worse when cold. She has CREST syndrome & Raynaud's disease. She follows with Rheumatology for these symptoms, and she found no improvement from PO medication for her growths. She is a smoker, and says she has been working on reducing her use, but ays this has been a struggle. She has a Hx of a biopsy in the past, and she says her removed growth did not return. 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 [facility] Medical History Hypertension Barretts esophagus GERD (gastroesophageal reflux disease) Anxiety Migraine Raynaud phenomenon Calcinosis cutis CREST syndrome Ileostomy in place Surgical History History of fundoplication History of repair of hiatal hernia H/O total colectomy Family History Mother Hx of hysterectomy Father Diabetes Myocardial infarction, Onset Age: 60 Sister Malignant neoplasm of uterus Social History (Updated 06/15/24 @ 09:25 by CHRIS Soares) Household Members: Spouse Alcohol intake: current Alcohol intake frequency: a few times a week Patient Tobacco Use Status: Current everyday Tobacco user Cigarettes Per Day: 10 Current occupational status: employed 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 General: No Ecchymosis. No Erythema or evidence of infection. There is an area of calcification to the left Olecranon point, ~1cm in diameter, and directly adherant to the skin There is an area of calcification to the left elbow, measuring 3cm length x 1.5cm width, and protruding ~1cm, at the proximal aspect of the ulna There is a palpable mass in the left thumb pad, at the tip, and another along the volar ulnar aspect at the proximal phalanx level Radiographs: Three views of the left hand were taken today and reviewed by me in clinic. She has calcifications consistent with calcinosis cutis primarily involving the distal aspect of the thumb, as well as the volar ulnar area of the thumb just proximal to the IP joint. There are also some calcifications, though much smaller, the tip of the index finger. No fractures or dislocations. Assessment & Plan Assessment & Plan (1) Calcinosis cutis: Code(s): L94.2 - Calcinosis cutis Category: Medical (2) CREST syndrome: Comment: Raynaud's since 20s, calcinosis cutis, esophageal dysmotility, telangiectasias +++ centromere antibody Code(s): M34.1 - CR(E)ST syndrome Category: Medical (3) Raynaud phenomenon: Comment: since her 20s Code(s): I73.00 - Raynaud's syndrome without gangrene Category: Medical Qualifiers: Raynaud?s-associated gangrene presence: without gangrene Qualified Code(s): I73.00 - Raynaud's syndrome without gangrene Plan Assessment & Plan: 1. Left proximal forearm Calcinosis cutis X2 2. Left thumb calcinosis cutis x2 3. Right forearm and hand Calcinosis cutis Affecting bilateral elbows & hands Her primary complaint is of her left elbow and thumb I educated her about this condition I discussed operative and non-operative treatment options The patient would like to proceed with surgery, beginning with the left side. We can discuss treatment for her right upper extremity at a later date The risks and benefits of operative treatment were discussed with the patient and the patient wishes to proceed with surgery. These risks include, but are not limited to risk of damage to blood vessels, nerves, tendons, infection, recurrence, incomplete relief of preoperative symptoms, persistent pain, possible need for further surgery and the risks associated with regional blocks and anesthesia. The plan is to take the patient to the operating room sometime on 10/03/24 for the following procedures: 1. Left proximal forearm mass excision X2, at the Olecranon point & ~5cm distal to that, under general 2. Left thumb volar ulnar aspect mass excision at the proximal phalanx level, under general 3. Possible left thumb neurolysis (ulnar digital nerve), under general All of the preoperative paperwork including the consent was reviewed today. All the patient's questions were answered. She denies Diabetes, blood thinners, asthma, heart, lung, kidney issues She has CREST syndrome & Raynaud's syndrome, and follows with Rheumatology She is a smoker, I discussed the effects & risks of smoking, particularly in regard to her Calcinosis cutis & Raynaud's disease, including possible necrosis. She expressed understanding and says she will work towards quitting smoking prior to surgery. Scribed for Sandy Gallo MD by Colby Kilgore, medical center representative, on 09/21/24 at 11:40 AM, EST. Coding Level of Care Code Est Pt Level 4 (51771) Diagnoses Calcinosis cutis L94.2 CREST syndrome M34.1 Raynaud's phenomenon without gangrene I73.00 Raynaud?s-associated gangrene presence: without gangrene
== END 2024-09-21 11:50 | disposition home or self-care (01) ==
PROVIDERS: PCP Nurse Practitioner Family; Visit Provider Orthopaedic Surgery
DX: L94.2 Calcinosis cutis (principal); I73.00 Raynaud's syndrome without gangrene
CPT/HCPCS: 99024

== ENCOUNTER → 2024-09-21 11:13 | Outpatient (BNVA) | payer BC, SELFPAY | PROVIDERS: PCP Nurse Practitioner Family; Visit Provider Orthopaedic Surgery ==

== ENCOUNTER 2024-10-03 10:53 | Day surgery (SDC) | payer BC, SELFPAY ==
[2024-09-27 11:01] VITALS: BMI 26.0
--- NOTE | 2024-09-27 13:07 | HO.ANESPROP2 ---
Documented by User: Deirdre Pro NP 09/27/24 13:10 HPI - Anesthesia Eval Consult details Narrative: 59yo F for Left Thumb Excision Mass Neuroliss, forarm mass excision [place] [facility] [place] CREST Syndrome. Per 05/2024 office visit, overall well Discussed risk of pulmonary arterial hypertension and interstitial lung disease with scleroderma. Patient had CT chest, 2D echo and PFTs back in 2021 which were unremarkable except for mildly reduced DLCO not adjusted for hemoglobin. 2D echo 04/2024 unremarkable with no signs suggestive of pulmonary arterial hypertension. COUNT INCLUDES THE [facility] Active Problems Active Problems: All Active Problems Osteoarthritis of thumbs, bilateral (Acute) Calcinosis cutis (Acute) GERD (gastroesophageal reflux disease) (Acute) Raynaud phenomenon (Acute) CREST syndrome (Acute) Past Medical History Medical History Scleroderma Chronic renal insufficiency Hypertension Barretts esophagus GERD (gastroesophageal reflux disease) Anxiety Migraine Raynaud phenomenon Calcinosis cutis CREST syndrome Ileostomy in place Family History Family History Mother Hx of hysterectomy Father Diabetes Myocardial infarction, Onset Age: 60 Sister Malignant neoplasm of uterus Surgical History Surgical History History of repair of hiatal hernia H/O total colectomy Social History Social History Household Members: Spouse Are you a primary animal care worker to a significant other at home: No Do you presently have visiting nurse or other home services: No Alcohol intake: current Alcohol intake frequency: a few times a week Patient Tobacco Use Status: Current everyday Tobacco user Tobacco use type: Cigarette Cigarettes Per Day: 10 Smoked in Last 30 Days: Yes Patient Interested in Nicotine Replacement: No Have you been hit, kicked, punched, or otherwise hurt by someone within the past year? 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 Allergies Allergy/AdvReac Type Severity Reaction Status Date / Time minocycline Allergy Mild Hives Verified 10/03/24 11:02 Sulfa (Sulfonamide Allergy Mild Rash Verified 10/03/24 11:02 Antibiotics) sulfamethoxazole Allergy Mild Rash Verified 10/03/24 11:02 [From Bactrim] trimethoprim [From Bactrim] Allergy Mild Rash Verified 10/03/24 11:02 Home Medications ?Medication ?Instructions ?Recorded ?Confirmed ?Last Taken ?Type atorvastatin 20 mg tablet 20 mg PO DAILY 11/17/23 09/27/24 Unknown History omeprazole 40 mg capsule,delayed 40 mg PO DAILY 11/17/23 09/27/24 Unknown History release sertraline 50 mg tablet 50 mg PO DAILY 11/17/23 09/27/24 Unknown History Exam Height,Weight and Vital Signs: Height 5 ft 5 in Weight 70.76 kg Narrative Narrative: ECHO 2023 Conclusions: - Normal left ventricular size and systolic function. There is mildly increased left ventricular wall thickness. The visually estimated ejection fraction is between 55-60%. - Normal right ventricular cavity size and systolic function. - Normal global longitudinal strain -18%. Assessment and Plan Assessment Anesthesia Assessment: Chart Reviewed Documented by User: Shiela Mancia MD 10/03/24 12:49 COUNT INCLUDES THE [facility] Past Medical History Medical History Scleroderma Chronic renal insufficiency Hypertension Barretts esophagus GERD (gastroesophageal reflux disease) Anxiety Migraine Raynaud phenomenon Calcinosis cutis CREST syndrome Ileostomy in place Family History Family History Mother Hx of hysterectomy Father Diabetes Myocardial infarction, Onset Age: 60 Sister Malignant neoplasm of uterus Family history of problems with anesthesia: No Surgical History Surgical History History of repair of hiatal hernia H/O total colectomy History of Problems with Anesthesia: No Social History Social History Household Members: Spouse Are you a primary animal care worker to a significant other at home: No Do you presently have visiting nurse or other home services: No Alcohol intake: current Alcohol intake frequency: a few times a week Patient Tobacco Use Status: Current everyday Tobacco user Tobacco use type: Cigarette Cigarettes Per Day: 10 Smoked in Last 30 Days: Yes Patient Interested in Nicotine Replacement: No Have you been hit, kicked, punched, or otherwise hurt by someone within the past year? 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 [employer] Allergies Allergy/AdvReac Type Severity Reaction Status Date / Time minocycline Allergy Mild Hives Verified 10/03/24 11:02 Sulfa (Sulfonamide Allergy Mild Rash Verified 10/03/24 11:02 Antibiotics) sulfamethoxazole Allergy Mild Rash Verified 10/03/24 11:02 [From Bactrim] trimethoprim [From Bactrim] Allergy Mild Rash Verified 10/03/24 11:02 Home Medications ?Medication ?Instructions ?Recorded ?Confirmed ?Last Taken ?Type atorvastatin 20 mg tablet 20 mg PO DAILY 11/17/23 09/27/24 Unknown History omeprazole 40 mg capsule,delayed 40 mg PO DAILY 11/17/23 09/27/24 Unknown History release sertraline 50 mg tablet 50 mg PO DAILY 11/17/23 09/27/24 Unknown History Exam Airway Mallampati Class: II TM Dist: <=3cm Neck ROM: Full Heart: rrr Lungs: cta Assessment and Plan Assessment Anesthesia Assessment: Anesthesia Plan Discussed Final Anesthetic Review Family History of Problems with Anesthesia: No History of Problems with Anesthesia: No NPO: Yes ASA Class: III Final Preanesthetic Review: No Changes in Pt Med Stat, Meds/Allgs Chart Reviewed, Consent Obtained/Reviewed and Anes Risks/Benef Reviewed Patient Risk: Intermediate Procedure Risk: Low Anesthetic Plan Anesthetic Plan: GA Disposition: Standard PACU
[2024-10-03] VITALS (8 sets, daily range): BP systolic 102–153; BP diastolic 51–78; PULSE 76–88; RESP 16–18; TEMP 36.6–36.7; O2SAT 96–100; BMI 26.3
[2024-10-03] MEDS: Lactated Ringers 1,000 ML 100 ML IVCONT (11:18)
--- NOTE | 2024-10-03 13:15 | MHC.SHP ---
Pre-Procedural Eval Section A - 24 Hr Update-Section A only Date of Service: 10/03/24 The patient is an INPATIENT: No Changes since office visit: No Cold of Flu in the past 2 weeks, No New Medical Problems, No Changes in Medication and No Patient answered all questions The patient has been examined within 24 hours of the surgical procedure. The History & Physical has been completed within 30 days and I have reviewed it.: Yes Section B - Complete if H&P > 30 days Chief Complaint: Calcinosis cutis Allergies: Allergies Allergy/AdvReac Type Severity Reaction Status Date / Time minocycline Allergy Mild Hives Verified 10/03/24 11:02 Sulfa (Sulfonamide Allergy Mild Rash Verified 10/03/24 11:02 Antibiotics) sulfamethoxazole Allergy Mild Rash Verified 10/03/24 11:02 [From Bactrim] trimethoprim [From Bactrim] Allergy Mild Rash Verified 10/03/24 11:02 Plan I have reviewed the history and physical and performed a pertinent physical examination on my patient. No changes have occurred unless specified. Time Spent With Patient Time: Total time managing care of this patient today ____ minutes.
--- NOTE | 2024-10-03 13:15 | W.PM.OPN ---
Operative Note Operative Note Date of Service: 10/03/24 Narrative: Operative Note Narrative: Preop diagnosis: 1. Left thumb mass 2. Left proximal forearm mass 3. Left olecranon mass Postop diagnosis: Same Procedure: 1. Left thumb mass excisional biopsy 2. Left forearm mass excisional biopsy 3. Left olecranon mass excisional biopsy Surgeon: Sandy Gallo MD Blockers Skiver: None Anesthesia: General Anesthesia Findings: Left thumb: White multi lobular soft tissue mass, about 1 cm in diameter, some portions filled with creamy gritty liquid Left forearm/proximal ulna: White multi lobular soft tissue mass, about 4.5 cm in length by approximately 2 cm in diameter at its widest central portion. 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 This specimen was split in half, half was sent for histopathology in formalin, and half was sent in saline for crystals analysis. Left olecranon: Soft tissue mass, white and multi lobular within tissue more closely in appearance to the bursa. Implants: None Tourniquet time: 48 minutes EBL: 5.0 ml Specimen: Left thumb mass, left forearm mass, and left olecranon mass all sent for histopathology, and a portion of the left forearm mass was sent in saline for crystals analysis. Drains: None Complications: None Disposition: Brought to the recovery room in stable condition Plan: Follow-up in 10-14 days for wound check, suture removal and to check pathology Indications: The patient is a 59 year old woman with crest syndrome, and a mass over the volar aspect of her left thumb at the proximal phalanx level, a mass over the proximal aspect of the left ulna, and a painful mass over the tip of the left olecranon. These are most consistent with calcinosis. The risks and benefits of operative treatment, including but not limited to risk of damage to blood vessels, nerves, tendons, infection, recurrence, persistent pain or numbness, incomplete resolution of preoperative symptoms, or need for further surgery were discussed with the patient and they wished to proceed with surgery. Procedure: Once consent was obtained patient was brought back to the operating suite and placed in the operating table in a supine position. . Perioperative antibiotics and anesthesia was administered by the anesthesia team. A tourniquet was applied to the proximal aspect of the left upper extremity and the limb was prepped and draped in a standard surgical fashion. The limb was elevated exsanguinated with Esmarch bandage and the tourniquet inflated to 250 mm of mercury for a total tourniquet time of 48 minutes. I 1st injected about the forearm and olecranon masses with some 1% lidocaine with epinephrine. I then proceeded to excision of the mass in the volar ulnar aspect of the thumb. An oblique incision was made over the volar ulnar aspect of the patient's left thumb proximal phalanx. The incision was made through the skin to the subcutaneous tissues using a 15. Blade. I then carefully dissected down to the level of the chronic soft tissue mass, which had undergone some spontaneous drainage about a week ago. The mass was about 1 cm in diameter, white chalky and multi lobular. There was also cystic portion filled with white gritty fluid. The mass was removed and placed on the back table to be sent for histopathology. A 4 cm longitudinal incision was made over the mass lying on the proximal aspect of the left ulna. The incision was made through the skin to the subcutaneous tissues using a 15. Blade. I then carefully dissected down to the level of the soft tissue mass which measured about 4.5 cm in length by about 2 cm in diameter at its widest central portion.. The mass was adherent to the fascia and periosteum of the underlying proximal ulna. The mass was carefully dissected free from the surrounding soft tissues as well as from the proximal ulna. It was then cut in half and placed on the back table with half being sent for histopathology, and the other half being sent in saline for crystals analysis. A 2.5 cm longitudinal incision was made extending from the tip of the olecranon proximally. The incision was made through the skin to the subcutaneous tissues using a 15. Blade. I then dissected down to the level of the soft tissue mass using tenotomy and iris scissors. There was some white multi lobular tissue as well as some cystic tissue with white gritty fluid as 1 might see in a gouty tophus. This was also with in tissue more consistent with an olecranon bursa. This tissue was carefully excised and placed on the back table to be sent for histopathology. At this point the tourniquet was deflated and hemostasis obtained with a brief period of local pressure and bipolar electrocautery. The wounds were copiously irrigated with normal saline. The the skin edges were reapproximated with 4-0 and 5-0 nylon suture. The forearm and olecranon wounds were infiltrated with some 1% lidocaine with epinephrine for postop pain control . The thumb was not injected with some 0.5% plain Marcaine for postop pain control. Sterile dressings were applied. The patient appears to have tolerated the procedure well and with no complications. All digits were well vascularized conclusion of the case.
== END 2024-10-03 16:12 | disposition home or self-care (01) ==
PROVIDERS: PCP Nurse Practitioner Family; Visit Provider Orthopaedic Surgery
PROC: (CPT 25071; principal; 2024-10-03 13:00)
DX: M34.1 CR(E)ST syndrome (principal); R22.32 Localized swelling, mass and lump, left upper limb; L90.5 Scar conditions and fibrosis of skin; M79.9 Soft tissue disorder, unspecified
CPT/HCPCS: 25071; 11421; 11402; 88304; 88305; 88311; 88329; J0131; J0690; J1100; J2250; J2405; J2704; J3010

== ENCOUNTER → 2024-10-03 10:53 | Outpatient (BNV) | payer BC, SELFPAY | PROVIDERS: PCP Nurse Practitioner Family; Visit Provider Orthopaedic Surgery | DX: R22.32 Localized swelling, mass and lump, left upper limb (principal) | CPT/HCPCS: 24075; 25071; 26115 ==

== ENCOUNTER 2024-10-18 11:13 | Outpatient (AMB) | payer BC, SELFPAY ==
--- NOTE | 2024-10-18 11:28 | A.OFFVIS_ITS ---
Intake Visit Reasons: PO LT thumb exc/forearm exc 10/03/24 AR Intake Note: Sherrie 59 yr old female presents today for her P/O visit for his Left proximal forearm mass excision X2, at the Olecranon point, left thumb volar ulnar aspect mass excision DOS 10/03/24 . Dressing removed in office. States she has tenderness on her elbow. She is left handed and has been grabbing stuff and accidentally hurting her thumb and noticed she had little pus with blood drainage. Allergies minocycline Allergy (Mild, Verified 10/18/24 11:29) Hives Sulfa (Sulfonamide Antibiotics) Allergy (Mild, Verified 10/18/24 11:29) Rash sulfamethoxazole [From Bactrim] Allergy (Mild, Verified 10/18/24 11:29) Rash trimethoprim [From Bactrim] Allergy (Mild, Verified 10/18/24 11:29) Rash HPI HPI PO LT thumb exc/forearm exc 10/03/24 AR: Details: Sherrie is a 59 year old left hand dominant woman who returns S/P left thumb, forearm, and olecranon mass excision, DOS: . She says she is doing well overall. She has some pain and was concerned about her thumb wound. She says she has been covering her thumb incision with Neosporin and bandages as she is constantly using her dominant hand for activities. She has CREST syndrome & Raynaud's disease. She follows with Rheumatology for these symptoms, and she found no improvement from PO medication for her growths. She is a smoker, and says she has been working on reducing her use, but ays this has been a struggle. 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 [facility] Medical History Scleroderma Chronic renal insufficiency Hypertension Barretts esophagus GERD (gastroesophageal reflux disease) Anxiety Migraine Raynaud phenomenon Calcinosis cutis CREST syndrome Ileostomy in place Surgical History History of repair of hiatal hernia H/O total colectomy Family History Mother Hx of hysterectomy Father Diabetes Myocardial infarction, Onset Age: 60 Sister Malignant neoplasm of uterus Social History Household Members: Spouse Are you a primary professional healthcare representative to a significant other at home: No Do you presently have visiting nurse or other home services: No Alcohol intake: current Alcohol intake frequency: a few times a week Patient Tobacco Use Status: Current everyday Tobacco user Tobacco use type: Cigarette Cigarettes Per Day: 10 Current occupational status: employed 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 Sutures removed and Steri-Strips applied I debrided & unroofed her thumb wound today in clinic, removing some yellow-modesto fibrinous exudate and devitalized skin that was acting much like an old blister. She tolerated this well. The wound bed appears to be healing well with a small amount of granulation tissue. The area is nontender and without evidence of infection. She can make a fist and extend all her digits. Good active range of motion of the thumb without pain. Sensation is intact Cap refill is brisk Pathology report 10/03/24 Diagnosis A. Soft tissue, left forearm, excision: Fibroadipose tissue with dense hyalinized fibrosis and dystrophic calcifications. B. Skin and soft tissue, left thumb, excision: Skin with dermal and subcutaneous dense fibrosis and dystrophic calcifications. C. Soft tissue, left forearm, excision: Fibroadipose tissue with dense hyalinized fibrosis and dystrophic calcifications. D. Soft tissue, left olecranon mass, excision: Skin with dermal and subcutaneous dense hyalinized fibrosis and dystrophic calcifications. Comment: The findings are consistent with calcinosis (the patient's diagnosis of CREST syndrome is noted) Psych Appearance: grossly normal Affect: normal affect Attitude: cooperative Assessment & Plan Assessment & Plan (1) Calcinosis cutis: Code(s): L94.2 - Calcinosis cutis Category: Medical (2) CREST syndrome: Comment: Raynaud's since 20s, calcinosis cutis, esophageal dysmotility, telangiectasias +++ centromere antibody Code(s): M34.1 - CR(E)ST syndrome Category: Medical (3) Raynaud phenomenon: Comment: since her 20s Code(s): I73.00 - Raynaud's syndrome without gangrene Category: Medical Qualifiers: Raynaud?s-associated gangrene presence: without gangrene Qualified Code(s): I73.00 - Raynaud's syndrome without gangrene Plan Assessment & Plan: 1. Left proximal forearm Calcinosis cutis X2 2. Left thumb calcinosis cutis x2 3. Left elbow calcinosis cutis S/P excisional biopsies, DOS: 10/03/24 The patient appears to be doing well post-operatively I educated her about the post-operative course I explained the signs and symptoms of infection. No infection today. I discussed activity modifications, she is to lift nothing heavier than a cellphone for the next two weeks She will perform gentle ROM exercises at home She should avoid any underwater activities for the next 5 days She should gently massage about the incision site to reduce the risk of hypersensitivity She will perform daily dressing changes at home Follow up p.r.n. 4. Right forearm and hand Calcinosis cutis Also affecting her elbow We can discuss treatment ptions when she has recovered from surgery Scribed for Sandy Gallo MD by Colby Kilgore, medical clerical assistant, on 10/18/24 at 11:50 AM, EST. Scribe Plan - Not visible on output: Scribed for Sandy Gallo MD by basia Kebede scribe, on [ ] at [ ], EST. Coding Level of Care Code Global (16923) Diagnoses Calcinosis cutis L94.2 CREST syndrome M34.1 Raynaud's phenomenon without gangrene I73.00 Raynaud?s-associated gangrene presence: without gangrene
== END 2024-10-18 12:06 | disposition home or self-care (01) ==
PROVIDERS: PCP Nurse Practitioner Family; Visit Provider Orthopaedic Surgery
DX: L94.2 Calcinosis cutis (principal); M34.1 CR(E)ST syndrome; I73.00 Raynaud's syndrome without gangrene
CPT/HCPCS: 99024

== ENCOUNTER 2024-11-16 08:50 | Outpatient (AMB) | payer BC, SELFPAY ==
--- NOTE | 2024-11-16 09:09 | A.OFFVIS_ITS ---
Vital Signs 11/16/24 09:13 Height 5 ft 5 in Weight 159 lb 6.307 oz BMI 26.5 BP 115/70 Blood Pressure Location Rt brachial Position Sitting Respiration 16 Pulse 85 Pulse Source Pulse Oximeter Pulse Oximetry (%) 98 Oxygen Delivery Method Room Air Intake Visit Reasons: CREST Intake Note: Patient presents for Crest. Allergies minocycline Allergy (Mild, Verified 11/16/24 09:11) Hives Sulfa (Sulfonamide Antibiotics) Allergy (Mild, Verified 11/16/24 09:11) Rash sulfamethoxazole [From Bactrim] Allergy (Mild, Verified 11/16/24 09:11) Rash trimethoprim [From Bactrim] Allergy (Mild, Verified 11/16/24 09:11) Rash Medication List - Last Reconciled 11/16/24 by Darryl Hood MD atorvastatin 20 mg PO DAILY lisinopril 5 mg (1/2 x 10 mg) PO DAILY omeprazole 40 mg PO DAILY sertraline 50 mg PO DAILY HPI Comments Details: 59-year-old female with limited scleroderma returns for follow-up. She was evaluated by hand surgery and had a couple of her calcium deposits removed, from her left elbow and left thumb. She feels better after the procedure. She continues to have few calcium deposits on both her elbows and both her hands. She continues to have some discomfort at the base of her right thumb but symptoms are not severe enough to do anything about it, she does not use the Voltaren gel I suggested last visit. She states that she had heated gloves as a Cy gift this year and they are very helpful, she wears them whenever she has to go outside in the cold. Denies any digital ulcers. She denies any cough, shortness of breath, Initial history: This is a 58-year-old female with crest syndrome who presents as a new patient. She states that she was diagnosed with Raynaud's affecting her hands and toes when she was in her 20s. She states that she has had GERD for many years. She had a esophageal procedure for her GERD, likely fundoplication around 2017. She states that she has had constipation for many years. She would have weeks of constipation and episodes with repeated vomiting. She would get admitted for a few days and symptoms would eventually resolved. However in 2019, she became septic and eventually had a total colectomy s/p ileostomy. Since then she has not had any significant diarrhea or constipation. She continues to have GERD. She has known history of Fish's esophagus. She takes omeprazole daily. She states that she sleeps using 2 pillows. Wakes up with a cough. She states that she has been a little more short of breath recently, her blood pressure was elevated and her PCP started her on lisinopril 10 mg daily with improvement of blood pressure and her shortness of breath. 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 She has pain both elbows, she has calcium deposits on both elbows, which are painful as well as calcium deposits on the left thumb and right ring finger. She states that she continues to have Raynaud's episodes. She uses gloves and glove warmers. Has not had any recent episodes of prolonged ischemia. She denies any skin thickening. She has been having some pain in the base of both thumbs and her knees. She is unaware of any family history of autoimmune rheumatic disease. She denies any weight loss or fevers. She had 2 pregnancies and no abortions or miscarriages. [facility] Medical History Scleroderma Chronic renal insufficiency Hypertension Barretts esophagus GERD (gastroesophageal reflux disease) Anxiety Migraine Raynaud phenomenon Calcinosis cutis CREST syndrome Ileostomy in place Surgical History History of repair of hiatal hernia H/O total colectomy Family History Mother Hx of hysterectomy Father Diabetes Myocardial infarction, Onset Age: 60 Sister Malignant neoplasm of uterus Social History Household Members: Spouse Are you a primary housekeeper caregiver to a significant other at home: No Do you presently have visiting nurse or other home services: No Alcohol intake: current Alcohol intake frequency: a few times a week Patient Tobacco Use Status: Current everyday Tobacco user Tobacco use type: Cigarette Cigarettes Per Day: 10 Current occupational status: employed 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, 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 Reproductive History Menstrual Total pregnancies: 2 Number of Living Children: 2 Review of Systems Card Denies dyspnea Resp Denies cough and Denies dyspnea Musc Reports arthralgias Physical Exam Vital Signs: Last Vital Signs Pulse 85 11/16/24 09:13 Resp 16 11/16/24 09:13 BP 115/70 11/16/24 09:13 Pulse Ox 98 11/16/24 09:13 Oxygen Delivery Method Room Air 11/16/24 09:13 BMI result Body Mass Index 26.5 Const General: cooperative, healthy appearing and comfortable Nutritional Appearance: overweight Orientation/consciousness: patient oriented x3 Limitations: no limitations HEENT Head: Yes normocephalic and Yes atraumatic Mouth: moist mucous membranes Resp Effort & Inspection: normal respiratory effort and able to speak in complete sentences Auscultation: clear to auscultation bilaterally Cardio Rate: regular rate Rhythm: regular rhythm GI Other: Ileostomy Inspection: No distended Palpation (GI): Soft to palpation and nontender Skin Other: Multiple telangiectasias Calcinosis cutis on elbows, right ring finger and left thumb Neuro General: patient oriented x3 Extrem Other: Mild dusky discoloration of hands but her fingers are warm. No active synovitis Mild pain at the 1st CMC joint on the right. No active synovitis No significant skin thickening. Normal nailfold capillaroscopy Assessment & Plan Assessment & Plan (1) CREST syndrome: Comment: Raynaud's since 20s, calcinosis cutis, esophageal dysmotility, telangiectasias +++ centromere antibody Code(s): M34.1 - CR(E)ST syndrome Category: Medical Plan: This is a 59-year-old female with crest syndrome who presents for follow-up. Doing well overall, she is s/p removal of some of her calcinosis deposits in her left thumb and left elbow. She is happy with the results. Discussed risk of pulmonary arterial hypertension and interstitial lung disease with scleroderma. Patient had CT chest, 2D echo and PFTs back in 2021 which were unremarkable except for mildly reduced DLCO not adjusted for hemoglobin. 2D echo 04/2024 unremarkable with no signs suggestive of pulmonary arterial hypertension. PFTs not done. Patient will try to get it done in [place]. Reordered Labs before next visit in 6 months (2) Raynaud phenomenon: Comment: since her 20s Code(s): I73.00 - Raynaud's syndrome without gangrene Category: Medical Qualifiers: Raynaud?s-associated gangrene presence: without gangrene Qualified Code(s): I73.00 - Raynaud's syndrome without gangrene Plan: Discussed conservative management for Raynaud's such as keeping core and extremity temperature warm. She had heated gloves as a Cy gift. They are very helpful Plan I spent 25 minutes reviewing patient's chart, evaluating patient, ordering diagnostic workup, counseling patient and documenting in the chart Orders: Orders Comprehensive Met. Panel 6 Months M34.1 - CR(E)ST syndrome C Reactive Protein 6 Months M34.1 - CR(E)ST syndrome Complete Blood Count Auto Diff 6 Months M34.1 - CR(E)ST syndrome Creatine Kinase Total 6 Months M34.1 - CR(E)ST syndrome Erythrocyte Sedimentation Rate 6 Months M34.1 - CR(E)ST syndrome Coding Level of Care Code Est Pt Level 4 (31471) Diagnoses CREST syndrome M34.1 Raynaud's phenomenon without gangrene I73.00 Raynaud?s-associated gangrene presence: without gangrene
[2024-11-16 09:13] VITALS: BP 115/70; PULSE 85; RESP 16; O2SAT 98; BMI 26.5
== END 2024-11-16 09:43 | disposition home or self-care (01) ==
PROVIDERS: PCP Nurse Practitioner Family; Visit Provider Student in an Organized Health Care Education/Training Program
DX: M34.1 CR(E)ST syndrome (principal); I73.00 Raynaud's syndrome without gangrene
CPT/HCPCS: 99214

== ENCOUNTER → 2024-11-16 08:50 | Outpatient (BNVA) | payer BC, SELFPAY | PROVIDERS: PCP Nurse Practitioner Family; Visit Provider Student in an Organized Health Care Education/Training Program ==

== ENCOUNTER 2025-05-25 07:22 | Outpatient (AMB) | payer BC, SELFPAY ==
--- OUTSIDE RECORDS SUMMARY | 2025-05-23 11:15 | XMS_ITS | Encounter Summary ---
Author Organization [facility] Address [address] [place] [phone] Phone Care Team Providers Care Vehicle Safety Inspector Name Role Phone Unavailable Primary Care Provider Unavailabl e Encounter Details Date Type Department Care Team (Late st Contact Info) Description 05/23/2025 11:15 AM EDT Pre-Admission Testing Pre Procedure Evaluation [address] [place] [address] Dante Heath MD [address] [place] [address] [email or web address] Social History Tobacco Use Types Packs/Day Years Used Date Smoking Tobacco: Every Day Cigarettes Smokeless Tobacco: Never Comments:Smokes less than 1/ 2ppd; smoking since age 18 (had an 8yr period when she stopped smoking) Alcohol Use Standard Drinks/Week Comments Yes 0 (1 standard drink = 0.6 oz pur e alcohol) occasionally Education Answer Date Recorded Are you interested in more education? Not on hien e 03/30/2025 Are you concerned about learning? Not on file 03/30/2025 No 03/30/2025 No 03/30/2025 Digital Access Answer Date Recorded No 03/30/2025 No 03/30/2025 Reliable internet access at home? Not on file 03/30/2025 Device with a working camera? Not on file Intimate Partner Violence Answer Date R ecorded Are you denied basic needs s uch as food, clothing, or medical care? No 05/24/2025 In the past 12 months have y ou been in a relationship with a person who hurts, threatens, or tries to control you? No 05/24/2025 Are you denied basic needs s uch as food, clothing, or medical care? No 05/24/2025 In the past 12 months have y ou been in a relationship with a person who hurts, threatens, or tries to control you? No 05/24/2025 Comments No Sex and Gender Information Value Date Recorded Sex Assigned at Not on file Legal Sex Female 9:41 PM EDT Gender Identity Not on file Sexual Orientation Not on file documented as of this encounter Last Filed Vital Signs Vital Sign Reading Time Taken Comments Blood Pressure - - Pulse - - Temperature - - Respiratory Rate - - Oxygen Saturation - - Inhaled Oxygen Concentration - - Weight 70.3 kg (155 lb) 05/24/2025 1:53 PM EDT Height 165.1 cm (5' 5 ) 05/24/2025 1:53 PM EDT Body Mass Index 25.79 05/24/2025 1:53 PM EDT documented in this encounter Progress Notes * Karly Clifford RN - 05/23/2025 11:15 AM EDT This preprocedure call occurred on May 24, 2025. Reviewed following Pre Procedure Covid Instructions: To avoid spreading infection to others in household and community: - Keep your distance from others (about 6 feet or 2 meters). - Separate yourself from other people and animals in your home. This includes staying in a single room and using a separate bathroom if available (Wear a facemask, if available, when you are around other people). - Cover your coughs and sneezes. - Wash your hands frequently. - Avoid sharing personal household items, including eating and drinking utensils, towels, or bedding. - Clean all high-touch surfaces (such as counters, tabletops, doorknobs, phones, toilets, keyboards) every day with household cleaning spray or wipes. This preprocedure call occurred on May 24, 2025. Reviewed prep instructions. All questions answered. Ride home arranged. Patient verbalized understanding documented in this encounter Plan of Treatment Upcoming Encounters Date Type Department Care Team (Latest Contact Info) Description 05/30/2025 Procedure Pass [facility] Admitting Dept [facility] Department [address] [place] [phone] 05/30/2025 9:15 AM EDT Hospital Encounter [facility]mitting [facility] Virtual Department [address] [place] [phone] Dante Heath MD [address] [place] [place] [phone] [email or web address] 05/30/2025 9:15 AM EDT Anesthesia Event [facility] Admitting [facility] Virtual Department [address] [place] [phone] Trevor Zuniga MD [address] [place] [phone] [email or web address] 05/30/2025 9:15 AM EDT - 05/30/2025 9:30 AM EDT Surgery [facility] Admitting [facility] Virtual Department [address] [place] [phone] Dante Heath MD [address] [place] [place] [phone] [email or web address] ESOPHAGOGASTRODUODENOSCOPY Scheduled Procedures Name Priority Associated Diagnoses Date/Ti ca ESOPHAGOGASTRODUODENOSCOPY Fish's esophagus without dysplasia Gastroesophageal reflux disease without esophagitis 05/30/2025 9:15 AM EDT documented as of this encounter Visit Diagnoses Not on filedocumented in this encounter Additional Source Comments The information contained in this document represents components of the legal health record. It is not the complete legal health record.[facility]
--- OUTSIDE RECORDS SUMMARY | 2025-05-25 07:24 | XMS_ITS | Patient Health Record ---
Author Organization [facility] Billing Info Address [address] [place], [place] [id number] Care Team Providers Care Pest Control Operator Name Role Phone SERGIO KHAN Primary Care Provider KRISHAN REAVES, [facility]- Unavailable [phone] Allergies Allergen (clinical drug ingredient) Drug/Non Drug Allergy documented on EMR Reaction Allergy Type Onset Date Status Sulfa unknown Drug Allergy Active Reason For Referral No Information Medications Medication SIG (Take, Route, Frequency, Duration) Notes Start Date End Date Status Chantix Continuing Month Guille 1 MG as directed Orally 10/05/2020 Not-Takin g Chantix Starting Month Guille 0.5 MG X 11 & 1 MG X 42 as directed Orally 10/05/2020 Not-Takin g Protonix 40 MG 1 tablet Orally Once a day for 30 day(s) 09/03/2020 Active Percocet 5-325 MG 1 tablet as needed Orally every 6 hrs PRN pain for 3 day(s) 09/03/2020 Not-Taking Zofran 4 MG 1 tablet Orally Q8H PRN nausea for 7 day(s) 09/03/2020 Not-Taking Sertraline HCl 50 MG 1 tablet Orally Sadie ly for 90 Active Lisinopril 20 MG 1 tablet Orally Daily Not-Taking Ibuprofen 800 MG 1 tablet with food o r milk as needed Orally Q8H PRN for 30 day(s) 09/03/2020 Not-Taking Problems Problem Type SNOMED Code ICD Code Onset Dates Problem Status W/U Status Risk Notes Problem 698044690 Postop check (Z09) Active confirmed Problem 97445574 Anxiety (F41.9) Active confirmed Problem 175847801 Ileostomy present (Z93.2) Active confirmed Problem 930046045605374 Hx of total colectomy (Z90.49) Active confirmed Plan Of Treatment Pending Test Test Name Order Date URINALYSIS, DIP STICK/TABLET REAGENT; AU TOMATED, W/O MICROSCOPY (89470) IH 09/21/2020 XRAY- HAND COMP BILAT (80472)([facility]) 11/16/2020 Future Test Test Name Order Date Comp. Metabolic Panel (14) ([id number]) Creatinine, Urine ([id number]) 09/21/2020 Comp. 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
--- OUTSIDE RECORDS SUMMARY | 2025-05-25 07:24 | XMS_ITS | Data Portability ---
Author Organization [facility], , [facility] Address [address] [place] [address] Care Team Providers Care Bridge Painter Helper Name Role Phone MARTY VALDEZ Technical Sales Support Specialist CHELY TALLEY Primary Care Provider [phone] [facility] Foreign Trade Teacher Assessment Encounter Date Assessment Date Assessment LastModified by Organization Details LastModified Time 01/18/2025 01/18/2025 LABS CK: Normal (11/2024) BMP: Normal (11/2024) CBC: Normal (11/2024) Inflammatory marker: Normal (11/2024) Electrolytes: Normal (11/2024) LFTs: Normal (11/2024) Uric acid: Normal (11/2024) Cholesterol: Low (11/2024) Cr: 47 (11/2024) RADIOLOGY Chest CT: No specific fibrotic lung symptoms, no air trapping, stable nodules, dilated esophagus consistent with scleroderma, heavy coronary artery calcification (2021) DIAGNOSTIC 2D echo: Unremarkable (04/2024) EKG: Normal Time spent with patient face to face: 35 minutes Time spent with chart prep, documentation and coordinating with her specialists: 12 minutes Not available 01/18/2025 22:20:56 Plan of Treatment Reminders Order Date Submit Date Provider Last Modified By Organization Details Last Modified Time Details Appointments None recorded. Lab microalbum in/creatin ine, ratio panel, urine 2024 025 [facility], [address] [place], [address], 16:41:51 BNP (B-type natriureti c peptide), serum or plasma 2022 023 [facility], [address] [place] [address], [address], 3 10:08:11 CK-mb, blood 2022 023 [facility], [address] [place] [address], [address], 3 10:08:10 BMP, serum or plasma 2022 023 [facility], [address] [place] [address], [address], 3 16:02:10 lipid panel, serum 2021 022 [facility], [address] [place] [address], [address], 2 13:06:05 multiple sclerosis panel, serum and CSF 2021 022 [facility], [address] [place] [address], [address], 2 23:23:18 Referral gastroente rologist referral - Moved to [facility] in 2020 from [place], last EGD predates her move. Known Fish's esophagus, s/p total colectomy in 2020. Needs EGD and to establish with a GI provider. 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 CREST syndrome diagnosis. No rheum care for about 1 year. Allergic reaction to minocyclin e. 2022 023 [email or web address] [facility] Rhe[facility], [address] [place] [address] [address], [place], [address], 3 13:32:24 gastroente rologist referral 2021 022 [facility]astroenter[facility], [address] [place], [address], 2 09:19:38 Procedures None recorded. Surgeries None recorded. Imaging LDCT, chest, for lung cancer screening - Please enroll this patient in the LDCT Lung Cancer Screening Program (for ordering, follow up and shared decision making) 2024 025 [email or web address] [facility] (Scheduling), [address] [place], [address], 5 12:24:29 MAMMO, screening, tomosynthe sis, bilateral - Note to Provider: 2nd look consult/Di ag Mammo/US Breast/Colby ded Asp/Breast Bx as clinically indicated. 2022 023 [facility] (Imaging), [address], [place], [address], 4 09:55:02 electrocar diogram [address], [address] [place], [address], 3 10:40:15 MAMMO, screening, tomosynthe sis, bilateral 2021 022 [facility] (Imaging), [address], [place], [address], 2 08:50:41 Medication Orders vareniclin e tartrate 0.5 mg (11)-1 mg (42) tablets in a dose pack 2024 025 [facility] [facility]24245, [address] [place], [place], [id number], 5 16:52:38 lisinopril 5 mg tablet 2024 025 [facility], [address] [place], [place], [id number], 5 16:52:41 atorvastat in 20 mg tablet 2024 025 [facility] #57847, [address], [place], [id number], 5 16:52:40 sertraline 50 mg tablet 2024 025 [facility] #63270, [address] [place], [place], [id number], 5 16:52:36 clotrimazo le 1 % topical cream 2023 024 [facility] #29351, [address], [place], [id number], 4 15:30:44 lisinopril 10 mg tablet 2022 023 [facility] #35662, [address], [place], [id number], 3 10:24:06 atorvastat in 20 mg tablet 2022 023 [facility] #88625, [address], [place], [id number], 3 10:24:06 sertraline 50 mg tablet 2022 023 [email or web address] [facility] #69909, [address], [place], [id number], 3 10:24:05 minocyclin e 100 mg capsule 2021 022 [email or web address] [facility] #30983, [address], [place], [id number], 3 09:29:05 omeprazole 40 mg capsule,de layed release 2021 022 [email or web address] [facility] #80796, [address] [facility], [place], [place], [id number], 12:01:26 Patient TargetsNo targets recorded. Patient Instructions Encounter Date Encounter Id Patient Instructions Last Modified By Organization Details Last Modified Time 04/02/2022 [id number] deciding about using medicines to quit smoking Not available 04/02/2022 10:50:18 Quitting Tobacco : Care Instructions Not available 04/02/2022 10:50:18 After a discussi on of treatment options, which included consideration of best practices, patient preferences, and the patient s individual lifestyle and treatment goals, as well as consideration and attempted mitigation of any barriers to meeting the patient s goals, the following treatment plan and objectives were adopted: -Good to see you today! -Take your medications as prescribed, and please let us know if you have any unwanted or unexpected side effects. -Please review the patient education provided to you today. -Keep your follow-up appointments as scheduled. -Please let us know if you are worse in any way, we are signs and displays salesperson 24 hours a day, 7 days a week by phone: [phone]. -Please let us know if you have any further questions or concerns. Discussed indications for new prescription(s), risks and benefits of medication(s), common side effects and how to manage them, and reasons to notify prescriber of adverse effects or discontinuation. Not available 04/04/2022 22:35:23 Counseling done Patient not ready to quit I reviewed and agree with the assessment and plant for this patient. -Annie Greer MD. [email or web address] Not available 04/09/2022 08:39:04 08/20/2023 [id number] medicines to elina id with kidney disease: care instructions Not available 08/20/2023 10:24:06 After a discussi on of treatment options, which included consideration of best practices, patient preferences, and the patient s individual lifestyle and treatment goals, as well as consideration and attempted mitigation of any barriers to meeting the patient s goals, the following treatment plan and objectives were adopted: -Good to see you today! -Take your medications as prescribed, and please let us know if you have any unwanted or unexpected side effects. -Please review the patient education provided to you today. -Keep your follow-up appointments as scheduled. -Please let us know if you are worse in any way, we are signs and displays salesperson 24 hours a day, 7 days a week by phone: [phone]. -Please let us know if you have any further questions or concerns. Not available 08/22/2023 22:23:07 11/10/2023 [id number] After a discussi on of treatment options, which included consideration of best practices, patient preferences, and the patient s individual lifestyle and treatment goals, as well as consideration and attempted mitigation of any barriers to meeting the patient s goals, the following treatment plan and objectives were adopted: -Good to see you today! -Take your medications as prescribed, and please let us know if you have any unwanted or unexpected side effects. -Please review the patient education provided to you today. -Keep your follow-up appointments as scheduled. -Please let us know if you are worse in any way, we are signs and displays salesperson 24 hours a day, 7 days a week by phone: [phone]. -Please let us know if you have any further questions or concerns. Discussed indications for new prescription(s), risks and benefits of medication(s), common side effects and how to manage them, and reasons to notify prescriber of adverse effects or discontinuation. Not available 11/10/2023 08:36:12 01/18/2025 [id number] complete PFT* - Complete PFTs with ABG (includes spirometry, pre- and post-borchodilator with flow-volume loop, lung volumes, DLCO) TREMAINE Not available 04/19/2025 13:45:50 After a discussi on of treatment options, which included consideration of best practices, patient preferences, and the patient s individual lifestyle and treatment goals, as well as consideration and attempted mitigation of any barriers to meeting the patient s goals, the following treatment plan and objectives were adopted: -Good to see you today! -Take your medications as prescribed, and please let us know if you have any unwanted or unexpected side effects. -Please review the patient education provided to you today. -Keep your follow-up appointments as scheduled. -Please let us know if you are worse in any way, we are signs and displays salesperson 24 hours a day, 7 days a week by phone: [phone]. -Please let us know if you have any further questions or concerns. Not available 01/18/2025 22:17:32 Follow-up Due to a complex medical history, multiple follow-ups are needed. Regular monitoring and coordination with specialists are essential. Follow-up with results of PFTs, urine test, and CT scan is necessary. Ensure [facility] referral is completed, monitor blood pressure, and adjust lisinopril dosage as needed. Discuss kidney function and BNP testing with rheumatology. 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 CREST syndrome diagnosis. No rheum care for about 1 year. Allergic reaction to minocycline. Referring Physician: Chely Talley [facility], Encounter Date: 08/20/2023 Foreign Trade Teacher Referral for Fish's esophagus Moved to [facility] in 2020 from [place], last EGD predates her move. Known Fish's esophagus, s/p total colectomy in 2019. Needs EGD and to establish with a GI provider. Referring Physician: Chely Talley [facility], Encounter Date: 01/18/2025 Results Created Date Observation Date Name Description Value Unit Range Abnormal Flag Note LastModifiedBy Organization Detail LastModifiedTime 03/14/20 22 03/14/2022 BASIC METAB OLIC PANEL glucose 99 mg/dL 70-100 Not Available [address], [address], 03/14/2022 15:43:23 03/14/20 22 03/14/2022 BASIC METAB OLIC PANEL BUN 18 mg/dL 7-18 Not Available [address], [address], 03/14/2022 15:43:23 03/14/20 22 03/14/2022 BASIC METAB OLIC PANEL creatinine 1.0 mg/dL 0.8-1. 3 Not Available [address], [address], 03/14/2022 15:43:23 03/14/20 22 03/14/2022 BASIC METAB OLIC PANEL B/C 18.0 ratio Not Available [address], [address], 03/14/2022 15:43:23 03/14/20 22 03/14/2022 BASIC METAB OLIC PANEL GFR >=60ML /MIN mL/mi n normal >=60m L/min - [place] l or midly reduc ed <60mL /min- Decre ased kidne y funct ion <15mL /min - Kidne y failu re [facility] calcu lates estim ated Glome rular Filtr ation Rate (eGFR ) using the Chron ic Kidne y Disea se Epide miolo gy Colla borat ion (CKD- EPI) Equat ion (Diane r et. al 2020) as recom yvonne d by the Natio nal Kidne y Found ation . eGFR is based on age, serum creat inine , and sex. CKD-E PI does not calcu late eGFR by race, does not apply to child karen (age <18 years ), and shoul d not be used in pregn harpreet. Not Available [address], [address], 03/14/2022 15:43:23 03/14/20 22 03/14/2022 BASIC METAB OLIC PANEL sodium 141 mmol/ L 136-14 5 Not Available [address], [address], 03/14/2022 15:43:23 03/14/20 22 03/14/2022 BASIC METAB OLIC PANEL potassium 4.5 mmol/ L 3.5-5. 1 Not Available [address] [place], [address], 03/14/2022 15:43:23 03/14/20 22 03/14/2022 BASIC METAB OLIC PANEL chloride 106 mmol/ L 96-107 Not Available [address], [address], 03/14/2022 15:43:23 03/14/20 22 03/14/2022 BASIC METAB OLIC PANEL anion gap 10.9 5.0-15 .0 Not Available [address], [address], 03/14/2022 15:43:23 03/14/20 22 03/14/2022 BASIC METAB OLIC PANEL CO2 24 mmol/ L 21-32 Not Available [address], [address], 03/14/2022 15:43:23 03/14/20 22 03/14/2022 BASIC METAB OLIC PANEL calcium 9.3 mg/dL 8.5-10 .3 Not Available [address], [address], 03/14/2022 15:43:23 04/10/20 22 04/11/2022 LIPID PANEL cholesterol 221 mg/dL <200 mg/dl Vargas able 200-2 39 mg/dl Borde rline High >240 mg/dl High Not Available [address], [address], 04/11/2022 13:06:05 04/10/20 22 04/11/2022 LIPID PANEL triglyceride s 150 mg/dL <150 mg/dL [place] l 150-1 99 mg/dL Borde rline High 200-4 99 mg/dL High >500 mg/dL Very High Not Available [address], [address], 04/11/2022 13:06:05 04/10/20 22 04/11/2022 LIPID PANEL direct HDL 49 mg/dL <40 mg/dl - Major Risk for CHD >60 mg/dl - Negat tayla Risk for CHD Not Available [address], [address], 04/11/2022 13:06:05 04/10/20 22 04/11/2022 DIREC T LDL direct LDL 132 mg/dL RISK CATEG ORY LDL GOAL _ CHD or CHD Risk Equiv alent s <100 mg/dl (10-y ear risk >20%) 2+ Risk Facto rs <130 mg/dl (10-y ear risk <= 20%) 0-1 Risk Facto r <160 mg/dl Almo st all peopl e with 0-1 risk facto r have a 10 year risk <10%, thus 10 year risk asses ment in peopl e with 0-1 risk facto r is not neces alhaji. Not Available [address], [address], 04/11/2022 13:06:06 04/10/20 22 04/15/2022 SYSTE NATASHA SCLER OSIS 12 AB PANEL 2 scl 70 <11 SI <11 Not Available [email or web address] [address], [address], 04/15/2022 23:23:18 04/10/20 22 04/15/2022 SYSTE NATAHSA SCLER OSIS 12 AB PANEL 2 cenp A 189 SI <11 high Not Available [facility] [address], [address], 04/15/2022 23:23:18 04/10/20 22 04/15/2022 SYSTE NATASHA SCLER OSIS 12 AB PANEL 2 cenp B 157 SI <11 high Not Available [facility] [address], [address], 04/15/2022 23:23:18 04/10/20 22 04/15/2022 SYSTE NATASHA SCLER OSIS 12 AB PANEL 2 rp11 <11 SI <11 Not Available [facility] [address], [place], [address], 04/15/2022 23:23:18 04/10/20 22 04/15/2022 SYSTE NATASHA SCLER OSIS 12 AB PANEL 2 rp155 <11 SI <11 Not Available [facility] [address], [place], [address], 04/15/2022 23:23:18 04/10/20 22 04/15/2022 SYSTE NATASHA SCLER OSIS 12 AB PANEL 2 U1 snrnp net web application developer A <11 SI <11 Not Available [facility] [address], [place], [address], 04/15/2022 23:23:18 04/10/20 22 04/15/2022 SYSTE NATASHA SCLER OSIS 12 AB PANEL 2 U1 snrnp net web application developer C <11 SI <11 Not Available [facility] [address], [place], [address], 04/15/2022 23:23:18 04/10/20 22 04/15/2022 SYSTE NATASHA SCLER OSIS 12 AB PANEL 2 U1 snrnp net web application developer 70kd <11 SI <11 Not Available [facility] [address], [place], [address], 04/15/2022 23:23:18 04/10/20 22 04/15/2022 SYSTE NATASHA SCLER OSIS 12 AB PANEL 2 fibrillarin <11 SI <11 Not Available [facility] [address], [place], [address], 04/15/2022 23:23:18 04/10/20 22 04/15/2022 SYSTE NATASHA SCLER OSIS 12 AB PANEL 2 TH/to <11 SI <11 Not Available [facility] [address] [place], [place], [address], 04/15/2022 23:23:18 04/10/20 22 04/15/2022 SYSTE NATASHA SCLER OSIS 12 AB PANEL 2 pm/scl 100 <11 SI <11 Not Available [facility] [address] [place], [place], [address], 04/15/2022 23:23:18 04/10/20 22 04/15/2022 SYSTE NATASHA SCLER OSIS 12 AB PANEL 2 pm/scl 75 <11 SI <11 The Ameri can Colle ge of Rheum atolo gy (ACR) consi ders anti- Scl-7 0 (also known as anti- topoi nely ase I), anti- centr omere and/o r anti- RNA polym erase III antib odies part of the class ifica tion crite paula for Syste natasha Scler osis( SSc) given that the antib odies are prese nt in 30%-6 0% of patie nts with SSc. Centr omere prote in B (CENP B) antib wesley posit ivity is found in 64-95 % of patie nts with a limit ed form of cutan eous syste natasha scler osis i.e. NADEGE T syndr ome. The addit ion of centr omere prote in A (CENP A) antib wesley to CENP B antib wesley impro ves speci ficit y for diagn osis of SSc. Patie nts prese nting with diffu se cutan eous syste natasha scler osis (dcSS c) and featu res of CREST may have both centr omere (A & B) antib odies and Scl-7 0 antib odies . RNA polym erase III antib odies targe t RNAP III epito pes 11 (RP11 ) and 155 (RP15 5). Anti- RP11 antib wesley occur s in about 10% of scler oderm a patie nts and anti- RP155 antib odies in about 8%. Anti- U1-sn LEASE PURCHASE TRUCK DRIVER antib odies are assoc iated with SSc and infla mmato ry myopa thy overl ap syndr omes. Three major compo nents of U1-sn LEASE PURCHASE TRUCK DRIVER are teste d: U1-sn LEASE PURCHASE TRUCK DRIVER LEASE PURCHASE TRUCK DRIVER A, U1-sn LEASE PURCHASE TRUCK DRIVER LEASE PURCHASE TRUCK DRIVER C, U1-sn LEASE PURCHASE TRUCK DRIVER RNP70 kd. The prese nce of U1-sn LEASE PURCHASE TRUCK DRIVER antib odies occur in 14% and 26% of [facility] and Afric [facility] cans, respe ctive ly, in [facility] ca. Anti- fibri llari n (anti -U3RN P) antib odies are speci fic for SSc, but are mutua lly exclu sive from Scl-7 0, CENP, and RNAP III antib odies . Anti- U3RNP antib odies are detec alaina in 4-10% of SSc patie nts, and when prese nt are assoc iated with dcSSc and frequ ently visce ral renal and cardi ac invol vemen t. Fibri llari n antib odies are found more frequ ently in [facility] anAm riana n patie nts and when seen in this popul ation , the antib odies are assoc iated with sever e pulmo nary disea se, pulmo nary hyper tensi on, sever e small bowel invol vemen t, and a gisel r progn osis. Anti- Th/To antib odies are prese nt in 1-13% of SSc patie nts, and are rarel y found in other autoi mmune disea ses. Anti- Th/To antib odies are prima rily assoc iated with local ized cutan eous syste natasha scler osis (lcSS c). Anti- Th/To antib odies are also assoc iated with peric ardit is, inter stiti al lung disea se and a high frequ ency of intr insic pulmo nary hyper tensi on, and hence , a gisel r progn osis. Autoa ntibo dies to PM/Sc l, the human exoso me compl ex, are found in 4-11% of patie nts with SSc. PM/Sc l antib odies have also been obser mihai in polym yosit is/SS c overl ap syndr omes and other autoi mmune disea ses. The major ity of anti- PM/Sc l react ivity is direc alaina to one of two prote ins: PM/Sc l100 and/o r PM/Sc l75. More infor yifan yoni can be found at https :[email or web address] pablo gnost ics.c om/te stcen ter/t estgu brent.a ction ?dc=C F-Sys tScle r This test was devel oped and its nubia tical perfo rmanc e wei cteri stics have been deter mined by [facility] Iraj Torres trannikolay . It has not been clear ed or appro mihai by FDA. This assay has been valid ated pursu ant to the CLIA regul ation s and is used for clini christie purpo ses. Not Available [facility] [address], [place], [address], 04/15/2022 23:23:18 08/11/20 23 08/12/2023 BASIC METAB OLIC PANEL glucose 107 mg/dL 70-100 high Not Available [address], [address], 08/12/2023 10:00:20 08/11/20 23 08/12/2023 BASIC METAB OLIC PANEL BUN 18 mg/dL 7-18 Not Available [address], [address], 08/12/2023 10:00:20 08/11/20 23 08/12/2023 BASIC METAB OLIC PANEL creatinine 1.2 mg/dL 0.8-1. 3 Not Available [address], [address], 08/12/2023 10:00:20 08/11/20 23 08/12/2023 BASIC METAB OLIC PANEL B/C 15.0 ratio Not Available [address], [address], 08/12/2023 10:00:20 08/11/20 23 08/12/2023 BASIC METAB OLIC PANEL GFR 52.5 mL/mi n abnormal >=60m L/min - [place] l or midly reduc ed <60mL /min- Decre ased kidne y funct ion <15mL /min - Kidne y failu re [facility] calcu lates estim ated Glome rular Filtr ation Rate (eGFR ) using the Chron ic Kidne y Disea se Epide miolo gy Colla borat ion (CKD- EPI) Equat ion (Diane r et. al 2020) as recom yvonne d by the Natio nal Kidne y Found ation . eGFR is based on age, serum creat inine , and sex. CKD-E PI does not calcu late eGFR by race, does not apply to child karen (age <18 years ), and shoul d not be used in pregn harpreet. Not Available [address], [address], 08/12/2023 10:00:20 08/11/2008/12/2023 BASIC METAB OLIC PANEL sodium 142 mmol/ L 136-14 5 Not Available [address], [address], 08/12/2023 10:00:20 08/11/2008/12/2023 BASIC METAB OLIC PANEL potassium 4.6 mmol/ L 3.5-5. 1 Not Available [address], [address], 08/12/2023 10:00:20 08/11/2008/12/2023 BASIC METAB OLIC PANEL chloride 106 mmol/ L 96-107 Not Available [address], [address], 08/12/2023 10:00:20 08/11/2008/12/2023 BASIC METAB OLIC PANEL anion gap 11.2 5.0-15 .0 Not Available [address], [address], 08/12/2023 10:00:20 08/11/2008/12/2023 BASIC METAB OLIC PANEL CO2 25 mmol/ L 21-32 Not Available [address], [address], 08/12/2023 10:00:20 08/11/2008/12/2023 BASIC METAB OLIC PANEL calcium 9.7 mg/dL 8.5-10 .3 Not Available [address], [address], 08/12/2023 10:00:20 08/11/2008/12/2023 LIPID PANEL cholesterol 170 mg/dL LIPS= Speci men Sligh tly Lipem ic. Chem Resul ts may be effec alaina. <200 mg/dl Vargas able 200-2 39 mg/dl Borde rline High >240 mg/dl High Not Available [address], [address], 08/12/2023 10:00:22 08/11/2008/12/2023 LIPID PANEL triglyceride s 133 mg/dL <150 mg/dL [place] l 150-1 99 mg/dL Borde rline High 200-4 99 mg/dL High >500 mg/dL Very High Not Available [address], [address], 08/12/2023 10:00:22 08/11/2008/12/2023 LIPID PANEL direct HDL 46 mg/dL <40 mg/dl - Major Risk for CHD >60 mg/dl - Negat tayla Risk for CHD Not Available [address], [address], 08/12/2023 10:00:22 08/11/2008/12/2023 LDL - CALCU LATED LDL - calculated 97.4 RISK CATEG ORY LDL GOAL _ CHD or CHD Risk Equiv alent s <100 mg/dl (10-y ear risk >20%) 2+ Risk Facto rs <130 mg/dl (10-y ear risk <= 20%) 0-1 Risk Facto r <160 mg[facility] e with 0-1 risk facto r have a 10 year risk <10%, thus 10 year risk asses ment in peopl e with 0-1 risk facto r is not tim mane. Not Available [address], [address], 08/12/2023 10:00:23 08/20/20 23 08/20/2023 BASIC METAB OLIC PANEL glucose 106 mg/dL 70-100 high Not Available [address], [address], 08/20/2023 16:02:10 08/20/2008/20/2023 BASIC METAB OLIC PANEL BUN 15 mg/dL 7-18 Not Available [address], [address], 08/20/2023 16:02:10 08/20/20 23 08/20/2023 BASIC METAB OLIC PANEL creatinine 1.1 mg/dL 0.8-1. 3 Not Available [address], [address], 08/20/2023 16:02:10 08/20/2008/20/2023 BASIC METAB OLIC PANEL B/C 13.6 ratio Not Available [address], [address], 08/20/2023 16:02:10 08/20/2008/20/2023 BASIC METAB OLIC PANEL GFR 58.2 mL/mi n abnormal >=60m L/min - [place] l or midly reduc ed <60mL /min- Decre ased kidne y funct ion <15mL /min - Kidne y failu re [facility] calcu lates estim ated Glome rular Filtr ation Rate (eGFR ) using the Chron ic Kidne y Disea se Epide miolo gy Colla borat ion (CKD- EPI) Equat ion (Diane r et. al 2020) as recom yvonne d by the Bartolo meza . eGFR is based on age, serum creat inine , and sex. CKD-E PI does not calcu late eGFR by race, does not apply to child karen (age <18 years ), and sathyaul d not be used in pregn harpreet. Not Available [address], [address], 08/20/2023 16:02:10 08/20/2008/20/2023 BASIC METAB OLIC PANEL sodium 139 mmol/ L 136-14 5 Not Available [address], [address], 08/20/2023 16:02:10 08/20/2008/20/2023 BASIC METAB OLIC PANEL potassium 4.3 mmol/ L 3.5-5. 1 Not Available [address], [address], 08/20/2023 16:02:10 08/20/2008/20/2023 BASIC METAB OLIC PANEL chloride 105 mmol/ L 96-107 Not Available [address], [address], 08/20/2023 16:02:10 08/20/2008/20/2023 BASIC METAB OLIC PANEL anion gap 10.8 5.0-15 .0 Not Available [address], [address], 08/20/2023 16:02:10 08/20/2008/20/2023 BASIC METAB OLIC PANEL CO2 23 mmol/ L 21-32 Not Available [address], [address], 08/20/2023 16:02:10 08/20/2008/20/2023 BASIC METAB OLIC PANEL calcium 9.5 mg/dL 8.5-10 .3 Not Available [address], [address], 08/20/2023 16:02:10 08/20/2024 0808/21/2023 CK-MB (CK-2 ) CK-mb (CK-2) <0.7 NG/mL 0-5.0 normal Not Available [email or web address] [address] [place], [address], 08/21/2023 10:08:10 08/20/20 23 08/21/2023 B TYPE NATRI URETI C PEPTI DE (BNP) B type natriuretic peptide (BNP) 5 pg/mL <100 normal BNP level s incre ase with age in the gener al popul ation with the highe st value s seen in indiv idual s great er than 75 years of age. Refer ence: J. Am. Oneil. Cardi ol. 2002; 40:97 6-982 . Not Available [email or web address] [address] [place], [address], 08/21/2023 10:08:11 11/04/19 24 11/04/2023 BASIC METAB OLIC PANEL glucose 105 mg/dL 70-100 high Not Available [address], [address], 11/04/2023 13:57:19 11/04/19 24 11/04/2023 BASIC METAB OLIC PANEL BUN 20 mg/dL 7-18 high Not Available [address], [address], 11/04/2023 13:57:19 11/04/19 24 11/04/2023 BASIC METAB OLIC PANEL creatinine 1.2 mg/dL 0.8-1. 3 Not Available [address], [address], 11/04/2023 13:57:19 11/04/19 24 11/04/2023 BASIC METAB OLIC PANEL B/C 16.7 ratio Not Available [address], [address], 11/04/2023 13:57:19 11/04/19 24 11/04/2023 BASIC METAB OLIC PANEL GFR 52.5 mL/mi n abnormal >=60m L/min - [place] l or midly reduc ed <60mL /min- Decre ased kidne y funct ion <15mL /min - Kidne y failu re [facility] calcu lates estim ated Glome rular Filtr ation Rate (eGFR ) using the Chron ic Kidne y Disea se Epide miolo gy Colla borat ion (CKD- EPI) Equat ion (Chaue r et. al 2020) as recom yvonne d by the Natio nal Kidne y Found ation . eGFR is based on age, serum creat inine , and sex. CKD-E PI does not calcu late eGFR by race, does not apply to child karen (age <18 years ), and shoul d not be used in pregn harpreet. Not Available [address], [address], 11/04/2023 13:57:19 11/04/19 24 11/04/2023 BASIC METAB OLIC PANEL sodium 141 mmol/ L 136-14 5 Not Available [address], [address], 11/04/2023 13:57:19 11/04/19 24 11/04/2023 BASIC METAB OLIC PANEL potassium 4.2 mmol/ L 3.5-5. 1 Not Available [address], [address], 11/04/2023 13:57:19 11/04/19 24 11/04/2023 BASIC METAB OLIC PANEL chloride 105 mmol/ L 96-107 Not Available [address], [address], 11/04/2023 13:57:19 11/04/19 24 11/04/2023 BASIC METAB OLIC PANEL anion gap 13.1 5.0-15 .0 Not Available [address], [address], 11/04/2023 13:57:19 11/04/19 24 11/04/2023 BASIC METAB OLIC PANEL CO2 23 mmol/ L 21-32 Not Available [address], [address], 11/04/2023 13:57:19 11/04/19 24 11/04/2023 BASIC METAB OLIC PANEL calcium 9.2 mg/dL 8.5-10 .3 Not Available [address], [address], 11/04/2023 13:57:19 11/10/19 25 11/10/2024 CBC WBC 4.84 K/ L 3.98-1 0.04 Not Available [address], [address], 11/10/2024 15:34:05 11/10/19 25 11/10/2024 CBC RBC 4.46 M/ L 3.93-5 .22 Not Available [address], [address], 11/10/2024 15:34:05 11/10/19 25 11/10/2024 CBC HGB 13.4 g/dL 11.2-1 5.7 Not Available [address], [address], 11/10/2024 15:34:05 11/10/19 25 11/10/2024 CBC HCT 40.7 % 34.1-4 4.9 Not Available [address], [address], 11/10/2024 15:34:05 11/10/19 25 11/10/2024 CBC MCV 91.3 fL 79.4-9 4.8 Not Available [address], [address], 11/10/2024 15:34:05 11/10/19 25 11/10/2024 CBC MCH 30.0 pg 25.6-3 2.2 Not Available [address], [address], 11/10/2024 15:34:05 11/10/19 25 11/10/2024 CBC MCHC 32.9 g/dL 32.2-3 5.5 Not Available [address], [address], 11/10/2024 15:34:05 11/10/19 25 11/10/2024 CBC plt 184 K/ L 182-36 9 Not Available [address], [address], 11/10/2024 15:34:05 11/10/19 25 11/10/2024 CBC MPV 10.7 fL 9.4-12 .3 Not Available [address], [address], 11/10/2024 15:34:05 11/10/19 25 11/10/2024 CBC neut% 74.2 % 34.0-7 1.1 high Not Available [address], [address], 11/10/2024 15:34:05 11/10/19 25 11/10/2024 CBC neut# 3.59 1.56-6 .13 Not Available [address], [address], 11/10/2024 15:34:05 11/10/19 25 11/10/2024 CBC lymph % 16.3 % 19.3-5 1.7 low Not Available [address], [address], 11/10/2024 15:34:05 11/10/19 25 11/10/2024 CBC lymph # 0.79 K/ L 1.18-3 .74 low SREV= Slide revie wed by [facility]. Not Available [address], [address], 11/10/2024 15:34:05 11/10/19 25 11/10/2024 CBC mono% 6.8 % 4.7-12 .5 Not Available [address], [address], 11/10/2024 15:34:05 11/10/1911/10/2024 CBC mono# 0.33 0.24-0 .56 Not Available [address], [address], 11/10/2024 15:34:05 11/10/1911/10/2024 CBC eo% 1.7 % 0.7-5. 8 Not Available [address], [address], 11/10/2024 15:34:05 11/10/1911/10/2024 CBC eo# 0.08 0.04-0 .36 Not Available [address], [address], 11/10/2024 15:34:05 11/10/19 25 11/10/2024 CBC baso% 0.8 % 0.1-1. 2 Not Available [address], [address], 11/10/2024 15:34:05 11/10/1911/10/2024 CBC baso# 0.04 0.00-0 .08 Not Available [address], [address], 11/10/2024 15:34:05 11/10/1911/10/2024 CBC RDW-CV 13.0 % 11.7-1 4.4 Not Available [address], [address], 11/10/2024 15:34:11/10/1911/10/2024 CBC Ig% 0.200 % 0.000- 1.500 Ig % >0.5 Indic ates possi ble Left Shift Not Available [address], [address], 11/10/2024 15:34:05 11/10/19 25 11/10/2024 CBC Ig# 0.010 0.000- 0.093 Not Available [address], [address], 11/10/2024 15:34:05 11/10/19 25 11/10/2024 CBC NRBC% 0.0 % 0.0-0. 2 Not Available [address], [address], 11/10/2024 15:34:05 11/10/19 25 11/10/2024 CBC NRBC# 0.000 0.000- 0.012 Not Available [address], [address], 11/10/2024 15:34:05 11/10/19 25 11/10/2024 ESR sed rate 8.0 0.0-15 .0 Not Available [address], [address], 11/10/2024 16:23:55 11/10/1911/14/2024 LIPID PANEL cholesterol 127 mg/dL <200 mg/dl Vargas able 200-2 39 mg/dl Borde rline High >240 mg/dl High Not Available [address], [address], 11/14/2024 15:44:40 11/10/1911/14/2024 LIPID PANEL triglyceride s 72 mg/dL <150 mg/dL [place] l 150-1 99 mg/dL Borde rline High 200-4 99 mg/dL High >500 mg/dL Very High Not Available [address], [address], 11/14/2024 15:44:40 11/10/1911/14/2024 LIPID PANEL direct HDL 54 mg/dL <40 mg/dl - Major Risk for CHD >60 mg/dl - Negat tayla Risk for CHD Not Available [address], [address], 11/14/2024 15:44:40 11/10/19 25 11/14/2024 DIREC T LDL direct LDL 57 mg/dL RISK CATEG ORY LDL GOAL _ CHD or CHD Risk Equiv alent s <100 mg/dl (10-y ear risk >20%) 2+ Risk Facto rs <130 mg/dl (10-y ear risk <= 20%) 0-1 Risk Facto r <160 mg/dl Almo st all peopl e with 0-1 risk facto r have a 10 year risk <10%, thus 10 year risk asses ment in peopl e with 0-1 risk facto r is not itm mane. Not Available [address], [address], 11/14/2024 15:44:41 11/10/19 25 11/14/2024 COMP. METAB OLIC PANEL glucose 99 mg/dL 70-100 Not Available [address], [address], 11/14/2024 15:50:45 11/10/19 25 11/14/2024 COMP. METAB OLIC PANEL BUN 16 mg/dL 7-18 Not Available [address], [address], 11/14/2024 15:50:45 11/10/19 25 11/14/2024 COMP. METAB OLIC PANEL creatinine 1.3 mg/dL 0.8-1. 3 Not Available [address], [address], 11/14/2024 15:50:45 11/10/19 25 11/14/2024 COMP. METAB OLIC PANEL B/C 12.3 ratio Not Available [address], [address], 11/14/2024 15:50:45 11/10/19 25 11/14/2024 COMP. METAB OLIC PANEL GFR 47.4 mL/mi n abnormal >=60m L/min - [place] l or midly reduc ed <60mL /min- Decre ased kidne y funct ion <15mL /min - Kidne y failu re [facility] calcu lates estim ated Glome rular Filtr ation Rate (eGFR ) using the Chron ic Kidne y Disea se Epide miolo gy Colla borat ion (CKD- EPI) Equat ion (Diane r et. al 2020) as recom yvonne d by the Natio nal Kidne y Found ation . eGFR is based on age, serum creat inine , and sex. CKD-E PI does not calcu late eGFR by race, does not apply to child karen (age <18 years ), and shoul d not be used in pregn harpreet. Not Available [address], [address], 11/14/2024 15:50:45 11/10/1911/14/2024 COMP. METAB OLIC PANEL sodium 143 mmol/ L 136-14 5 Not Available [address], [address], 11/14/2024 15:50:45 11/10/19 25 11/14/2024 COMP. METAB OLIC PANEL potassium 4.7 mmol/ L 3.5-5. 1 Not Available [address], [address], 11/14/2024 15:50:45 11/10/19 25 11/14/2024 COMP. METAB OLIC PANEL chloride 108 mmol/ L 96-107 high Not Available [address], [address], 11/14/2024 15:50:45 11/10/19 25 11/14/2024 COMP. METAB OLIC PANEL anion gap 12.0 5.0-15 .0 Not Available [address], [address], 11/14/2024 15:50:45 11/10/19 25 11/14/2024 COMP. METAB OLIC PANEL CO2 23 mmol/ L 21-32 Not Available [address], [address], 11/14/2024 15:50:45 11/10/19 25 11/14/2024 COMP. METAB OLIC PANEL calcium 9.5 mg/dL 8.5-10 .3 Not Available [address], [address], 11/14/2024 15:50:45 11/10/19 25 11/14/2024 COMP. METAB OLIC PANEL total protein 7.3 g/dL 6.4-8. 2 Not Available [address], [address], 11/14/2024 15:50:45 11/10/19 25 11/14/2024 COMP. METAB OLIC PANEL albumin 4.4 g/dL 3.4-5. 0 Not Available [address], [address], 11/14/2024 15:50:45 11/10/19 25 11/14/2024 COMP. METAB OLIC PANEL globulin 2.9 g/dL Not Available [address], [address], 11/14/2024 15:50:45 11/10/19 25 11/14/2024 COMP. METAB OLIC PANEL A/G 1.5 ratio 0.8-2. 0 Not Available [address], [address], 11/14/2024 15:50:45 11/10/19 25 11/14/2024 COMP. METAB OLIC PANEL total bilirubin 0.40 mg/dL 0.00-1 .00 Not Available [address], [address], 11/14/2024 15:50:45 11/10/19 25 11/14/2024 COMP. METAB OLIC PANEL AST 23 U/L 0-37 Not Available [address], [address], 11/14/2024 15:50:45 11/10/19 25 11/14/2024 COMP. METAB OLIC PANEL ALT 38 U/L 6-63 Not Available [address], [address], 11/14/2024 15:50:45 11/10/19 25 11/14/2024 COMP. METAB OLIC PANEL alk. phos. 95 U/L 50-136 Not Available [address], [address], 11/14/2024 15:50:45 11/10/19 25 11/14/2024 URIC ACID uric acid 6.0 mg/dL 2.6-6. 0 Not Available [address], [address], 11/14/2024 15:50:46 11/10/19 25 11/14/2024 CPK CPK 53.0 U/L 21.0-2 15.0 Not Available [address], [address], 11/14/2024 15:50:46 11/10/19 25 11/14/2024 C-KATJA CTIVE PROTE IN (RCRP ) C-reactive protein (rcrp) 1.0 mg/dL 0.5-9. 0 Not Available [address], [address], 11/14/2024 15:50:47 02/25/20 25 02/24/2025 MICRO ALBUM IN/CR EATIN INE RATIO PANEL , URINE microalbumin 8.6 mg/L 1.3-20 .0 Not Available [address], [address], 02/24/2025 16:41:51 02/25/20 25 02/24/2025 MICRO ALBUM IN/CR EATIN INE RATIO PANEL , URINE creatinine urine 103.1 mg/dL 30.0-1 25.0 Not Available [address], [address], 02/24/2025 16:41:51 02/25/20 25 02/24/2025 MICRO ALBUM IN/CR EATIN INE RATIO PANEL , URINE microalb/cre at ratio 8.3 mg/g_ creat 0.0-29 .0 Not Available [address], [place], [address], 02/24/2025 16:41:51 03/05/20 22 03/03/2022 lexis metry No observ ation record ed. [facility] ([facility]) [address] [place] [address], [address], 04/02/2022 10:48:12 04/03/20 22 02/24/2022 trans -thor acic echoc ardio gram (TTE) (PROC ) No observ ation record ed. [email or web address] [facility] [address] [place] [address], [place], [address], 06/27/2022 09:19:10 04/11/20 22 04/10/2022 MAMMO , scree kandice, tomos ynthe sis, bilat eral CLINIC AL HISTOR Y: Screen ing. TECHNI QUE: 3D mammog allyssa (tomos ynthes is) and 2D mammog allyssa (C-vie w) images are genera alaina. Images review ed with a CAD system . COMPAR JUANA: Prior mammog shereen back throug h 02/08/20 14. FINDIN GS: The breast parenc hyma is hetero geneou sly dense. There are no suspic ious masses . There are no suspic ious microc alcifi cation s. The breast vicki ecture is normal . There has been no signif icant change compar ed to the prior study. IMPRES CAROL: No mammog raphic eviden ce of malign harpreet. Annual mammog raphic screen ing recomm ended. This facili ty uses a remind er system with a target date for the next mammog joann. Breast densit y: C. The breast s are hetero geneou sly dense, which may obscur e small masses . BIRADS : 1, NEGATI VE John maresn: Andrei munoz Arnold ms [email or web address] [facility] (Imaging) [address] , [place], [address], 04/11/2022 12:06:22 08/20/20 23 08/20/2023 elect rocar diogr am No observ ation record ed. [facility] [address], [place], [address], 08/20/2023 11:41:57 08/20/20 elect rocar diogr am No observ ation record ed. Not Available 2022 10:25:57 03/11/20 24 03/11/2024 MAMMO , scree kandice, tomos ynthe sis, bilat eral MAMMO, SCREEN , LIN, BILAT: 024. BI-RAD S: 1 CLINIC AL: 58-yea r old Female for Bilate ral Screen ing Mammog joann. No person al or first- degree family histor y of breast cancer . Patien t report s no histor y of clinic al breast exam. PRIOR EXAMS: Review ed previo us images from 2021, 2018, 2016 and 2016. MAMMOG ALLYSSA TECHNI QUE: 3D mammog allyssa (tomos ynthes is) and 2D mammog allyssa (C-vie w) images are genera alaina. Images review ed with a CAD system . DENSIT Y C. Hetero geneou sly dense, which may obscur e small masses . MAMMOG ALLYSSA FINDIN GS Bilate ral: No suspic ious mass, asymme try, microc alcifi cation , or other abnorm ality seen. CONCLU SIONNo eviden ce of malign harpreet. RECOMM ENDATI ONS Bilate ralAnn ual screen ing mammog allyssa. ADMINI STRATI VE: A lay summar y was mailed to your patien t glenn alvarado the result s and recomm endati ons for follow -up. OVERAL L ASSESS MENT CATEGO RY BI-RAD S-1: Negati ve. The [employer] e [employer]iol ogy recomm ends annual screen ing mammog allyssa beginn ing at age 40 for women with averag e risk of breast cancer . ELECTR ONICAL LY SIGNED : Andrei Barrett ms, M.D. on 2023 at 09:54: 19 AM John Lindquist jai: Andrei Barrett ms [facility] (Imaging) [address] [place] [address] , [place], [address], 03/11/2024 10:00:06 07/12/20 24 06/15/2024 XR, hand No observ ation record ed. [email or web address] [place] [address], [address], 07/12/2024 18:37:23 07/12/20 24 06/15/2024 XR, hand No observ ation record ed. [email or web address] [place] [address], [address], 07/12/2024 18:37:23 02/21/20 25 02/20/2025 CT, chest No observ ation record ed. [facility] [address] [place], [address], 02/21/2025 08:37:30 04/19/20 25 04/07/2025 compl ete PFT* No observ ation record ed. [facility] (Sleep Dept) [address] [place] [address], [address], 04/27/2025 09:49:07 Result Notes Documentation Provider Name and Address Organization Details Recorded Time Mammo, Screening, Tomosynthesis, Bilateral : CLINICAL HISTORY: Screening. TECHNIQUE: 3D mammography (tomosynthesis) and 2D mammography (C-view) images are generated. Images reviewed with a CAD system. COMPARISON: Prior mammograms back through 02/07/2014. FINDINGS: The breast parenchyma is heterogeneously dense. There are no suspicious masses. There are no suspicious microcalcifications. The breast architecture is normal. There has been no significant change compared to the prior study. IMPRESSION: No mammographic evidence of malignancy. Annual mammographic screening recommended. This facility uses a reminder system with a target date for the next mammogram. Breast density: C. The breasts are heterogeneously dense, which may obscure small masses. BIRADS: 1, NEGATIVE Reading Physician: Kashif Leggett LPN [facility] 04/11/2022 12:06:22 Mammo, Screening, Tomosynthesis, Bilateral : MAMMO, SCREEN, LIN, BILAT: 03/11/2024. BI-RADS: 1 CLINICAL: 58-year old Female for Bilateral Screening Mammogram. No personal or first-degree family history of breast cancer. Patient reports no history of clinical breast exam. PRIOR EXAMS: Reviewed previous images from 2021, 2018, 2016 and 2015. MAMMOGRAPHY TECHNIQUE: 3D mammography (tomosynthesis) and 2D mammography (C-view) images are generated. Images reviewed with a CAD system. DENSITY C. Heterogeneously dense, which may obscure small masses. MAMMOGRAPHY FINDINGS Bilateral: No suspicious mass, asymmetry, microcalcification, or other abnormality seen. CONCLUSIONNo evidence of malignancy. RECOMMENDATIONS BilateralAnnual screening mammography. ADMINISTRATIVE: A lay summary was mailed to your patient indicating the results and recommendations for follow-up. OVERALL ASSESSMENT CATEGORY BI-RADS-1: Negative. The [employer] recommends annual screening mammography beginning at age 40 for women with average risk of breast cancer. ELECTRONICALLY SIGNED: Kashif Qureshi M.D. on 03/11/2024 at 09:54:19 AM Reading Physician: ANABELLA Ellsworth [address] [place] [address], [address], [facility] 03/11/2024 10:00:06 Problems Name Problem SNOMED Code Status Onset Date Resolution Date Notes Provider Name and Address Organization Details Recorded Time Tobacco user 766863486 Completed 07/10/2015 ANABELLA Richard [address] [place] [address], [phone] , [facility] 1 12:22:00 Gastroes ophageal reflux disease 623647553 Active 2006 Krys Borges NP [address] [place] [address], [address] , [facility] 5 08:52:17 Generali zed abdomina l pain 571705051 Completed 200709/21/2013 Not Available [facility] 3 02:02:04 Olecrano n bursitis 536707646 Completed 200809/21/2013 Not Available [facility] 3 02:04:04 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 Completed 200811/19/2016 Johnathon Page PA-C [address] [place] [address], [address] , [facility] 7 12:10:16 On examinat ion - a rash Completed 200809/21/2013 Not Available [facility] 3 02:00:46 Fish' s esophagu s 224549960 Active 2016 Johnathon Page PA-C [address] [place] [address], [address] , [facility] 7 10:47:10 Lung mass 042662269 Completed 201609/21/2017 ANABELLA Richard [address] [place] [address], [address] , [facility] 7 10:46:16 Hiatal hernia 12552102 Completed 201609/21/2017 schedule d for surgical repair 03/18/17 at [facility] Removal Reason: surgical ly repaired [place], [address] , [facility] 7 10:46:32 Hyperten sive disorder 59879239 Active 2017 ANABELLA Hobson [address] [place] [address], [address] , [facility] 8 10:30:21 Anxiety 73355310 Active 2019 ANABELLA Richard [address] [place] [address], [address] , [facility] 0 01:51:41 Migraine 99699452 Active 2019 Chely Talley, [employer] [address] [place] [address], [address] , [facility] 0 08:05:12 Raynaud' s phenomen on 010529953 Active 2020 ANABELLA Richard [address] [place] [address], [address] , [facility] 1 15:15:00 Excision of colon Active 2020 ANABELLA Richard [address] [place] [address], [address] , [facility] 1 15:15:07 Tobacco user 761511380 Active 2020 ANABELLA Richard [address] [place] [address], [address] , [facility] 1 12:22:00 Calcinos is cutis 19602791 Active 2021 bx 11/19/21 Debbie Bates PA-C [address] [place] [address], , [facility] 2 15:21:52 Chronic kidney disease stage 3 128321921 Completed 202104/02/2022 ANABELLA Richard [address] [place] [address], [address] , [facility] 2 10:19:09 CREST syndrome 76929625 Active 2021 Yrly echo, EKG, Ck and BNP ANABELLA Richard [address] [place] [address], [address] , [facility] 2 10:26:38 Ileostom y present 901721413 Active 2022 ANABELLA Richard [address] [place] [address], [address] , [facility] 3 10:13:59 Coronary arterios clerosis 26038069 Active 2024 ANABELLA Richard [address] [place] [address], [address] , [facility] 5 16:48:28 Sclerode rma Active 202404/13/25 Gastro consult note AJITH Clifford, [facility] 12:00:46 Problem Notes None recorded. Procedures Surgical History Date Name Laterality Status Provider Name and Address Organization Details Recorded Time 01/19/20 25 Smoking cessation counseling completed Renetta Conley MA [facility] 01/18/2025 15:58:53 11/10/19 24 Smoking cessation counseling completed Renetta Conley MA [facility] 11/10/2023 08:14:58 08/20/20 23 Smoking cessation counseling completed Renetta Conley MA [facility] 08/20/2023 09:29:40 04/02/20 22 Smoking cessation counseling completed ANABELLA Richard [address] [place] [address], [address], [facility] 04/02/2022 10:47:46 11/29/19 22 Suture/staple Removal completed Ramandeep Leong RN [facility] 11/29/2021 14:48:17 11/19/19 22 Smoking cessation counseling completed Debbie Bates PA-C [address] [place] [address], [address], [facility] 11/19/2021 10:36:15 11/19/19 22 Punch Biopsy completed Debbie Bates PA-C [address] [place] [address], [address], [facility] 11/19/2021 09:40:46 10/17/20 21 Smoking cessation counseling completed ANABELLA Richard [address] [place] [address], [address], [facility] 10/17/2021 15:32:56 08/02/20 20 Total Colectomy completed ANABELLA Richard [address] [place] [address], [address], [facility] 10/17/2021 15:15:29 10/08/20 18 Smoking cessation counseling completed Aparna Garcia MA [facility] 10/08/2018 10:04:52 03/17/20 17 POC Urinalysis Testing completed Christina Morgan [facility] 03/17/2017 09:31:27 03/02/20 17 Abdominal Surgery completed ANABELLA Richard [address] [place] [address], [address], [facility] 09/21/2017 10:47:01 10/08/20 15 Colonoscopy completed Johnathon Page PA-C [address] [place] [address], [phone], [facility] 12/01/2016 09:34:24 06/13/20 13 Smoking cessation counseling completed Gypsy Martinez [facility] 06/13/2013 08:35:37 02/16/20 13 Smoking cessation counseling completed Kateryna Britton [facility] 02/15/2013 08:27:45 12/02/19 12 Smoking cessation counseling completed Elijah Corral [facility] 12/02/2011 15:23:25 01/17/20 09 Aspiration Intermediate Joint/Bursa completed Claire Mcmullen PA-C [address] [place] [address], [address], [facility] 01/17/2009 06:55:50 Imaging Results None recorded. Procedure Notes None recorded. Medical Equipment None Reported. Allergies Allergen ID Allergen Name Allergen Category Reaction Reaction Severity Criticality Documentation Date Start Date Code Code System Note Provider Name and Address Organization Details Recorded Time 378614 minocycli ne medicatio n hives Not available Not available 08/20/2023 6980 RxNorm ANABELLA Richard [address] [place] [address] [place], [phone], [facility] 3 10:14:31 7928 Bactrim medicatio n rash Not available Not available 02/06/2009 85455 9 RxNorm Sulf a coupl e of diffe [facility] 2 15:19:36 Medications Name Sig Start Date Stop Date Status Note LastModified by Organization Details LastModified Time Miralax 17 gram/dose oral powder 1 capful mixed in 8 oz of water once a day 06/26 completed OTC Not Available Not Available Not Available Augmentin 875 mg-125 mg tablet Take 1 tablet every 12 hours by oral route for 14 days. 03/17 completed Started at [facility] 11/27 Not Available Not Available Not Available atorvasta tin 20 mg tablet TAKE 1 TABLET BY MOUTH EVERY DAY IN THE EVENING active Not Available Not Available No t Available Vicodin 5 mg-500 mg tablet Take 1-2 tablet by oral route every 4-6 hours as needed for pain 2008 active Not Available Not Available Not Avai lable Keflex 500 mg capsule Take 1 capsule 4 times a day by oral route. 2008 active Not Available Not Available Not Avai lable minocycli ne 100 mg capsule Take 1 capsule every 12 hours by oral route with meals. 08/20 completed Not Available Not Available Not Available lisinopri l 20 mg tablet Take 1 tablet every day by oral route for 90 days. 10/17 completed Not Available Not Available Not Available omeprazol e 40 mg capsule,d elayed release TAKE 1 CAPSULE BY MOUTH EVERY DAY 2023 active 04/13/25 GI consult decrease d to 20 mg Not Available Not Available Not Available zolmitrip lyon 5 mg tablet Take 1 tab at start of migraine . If symptoms persist 2 hours later, may repeat X 1. 10/17 completed Not Available Not Available Not Available Nexium 20 mg capsule,d elayed release Take 1 capsule every day by oral route. 07/24 completed Not Available Not Available Not Available Macrobid 100 mg capsule Take 1 capsule every 12 hours by oral route for 5 days. 09/21 completed Not Available Not Available Not Available Imitrex 50 mg tablet Take 1 tablet by oral route as needed for headache . May repeat 2 hours later as needed. 03/29 completed Not Available Not Available Not Available ferrous sulfate 325 mg (65 mg iron) tablet Take 1 tablet twice a day by oral route for 30 days. 10/08 completed pt. states she oes not use this daily 03/17/17 ak Not Available Not Available Not Available Cipro 500 mg tablet Take 1 tablet every 12 hours by oral route. 10/08 completed Not Available Not Available Not Available lisinopri l 10 mg tablet TAKE 1 TABLET BY MOUTH EVERY DAY IN THE MORNING 2023 active Not Available Not Available Not Avai lable sertralin e 25 mg tablet Take 1 tablet(s ) EVERY DAY by oral route x 1 week, then increase to 2 tablets PO daily 2014 active Not Available Not Available Not Avai lable omeprazol e 20 mg capsule,d elayed release TAKE 1 CAPSULE BY MOUTH TWICE A DAY 09/21 completed Not Available Not Available Not Available lisinopri l 5 mg tablet Take 1 tablet every day by oral route for 90 days. 2024 active Not Available Not Available Not Avai lable zolpidem 5 mg tablet Take 1 tablet every day by oral route as needed. 09/21 completed Pt. states she has these at home, but has not began taking 03/17/17 - ak Not Available Not Available Not Available Imitrex 100 mg tablet Take one tablet by mouth at onset of migraine , may repeat in one hour if needed. 03/29 completed Not Available Not Available Not Available albuterol sulfate HFA 90 mcg/actua tion aerosol inhaler Inhale 2 puffs every 4 hours by inhalati on route as needed. 12/01 completed Not Available Not Available Not Available Cipro 250 mg tablet Take 1 tablet twice a day by oral route for 5 days. 07/24 completed Not Available Not Available Not Available clotrimaz ole 1 % topical cream active 11/17/23 PA FAXED Not Available Not Available Not Available sertralin e 50 mg tablet TAKE 1 TABLET BY MOUTH EVERY DAY active Not Available Not Available No t Available Bactrim DS 800 mg-160 mg tablet Take 1 tablet every 12 hours by oral route for 7 days. 01/23 completed Not Available Not Available Not Available Prilosec OTC 20 mg tablet,de layed release 2009 active 1 po daily Not Available Not Available Not Available varenicli ne tartrate 0.5 mg (11)-1 mg (42) tablets in a dose pack Use as directed . 2024 active Not Available Not Available Not Avai lable omeprazol e 20 mg tablet,de layed release Take 1 tablet twice a day by oral route. 06/26 completed Take 1 tab daily-- OTC Not Available Not Available Not Available Chantix Continuin g Month Box 1 mg tablet Take 1 tablet twice a day by oral route for 30 days. 06/26 completed Not Available Not Available Not Available Chantix Starting Month Box 06/26 completed Not Available Not Available Not Available Vitals Date Recorded Systolic And Diastolic Provider Name and Address Organization Details Last Updated DateTime 11/09/2024 107/64 mm[Hg] Virginie Diallo [facility] 11/09/2024 08:21:25 Date Recorded Body height Body mass index (BMI) Body weight Provider Name and Address Organization Details Last Updated DateTime 11/10/2023 165.1 cm 26.8 kg/m2 68621.37 g Renetta Conley MA [facility] 11/10/2023 08:13:10 Date Recorded Systolic And Diastolic Provider Name and Address Organization Details Last Updated DateTime 01/18/2025 122/70 mm[Hg] Chely Talley, [address], [address], [facility] 01/18/2025 16:22:17 Date Recorded Body weight Body mass index (BMI) Body height Heart rate Provider Name and Address Organization Details Last Updated DateTime 01/18/2025 49396.37 g 26.8 kg/m2 165.1 cm 70 /min Renetta Conley MA [facility] 01/18/2025 16:05:23 Date Recorded Body weight Body mass index (BMI) Body height Heart rate Systolic And Diastolic Provider Name and Address Organization Details Last Updated DateTime 04/02/2022 75889.43 g 25.5 kg/m2 165.1 cm 70 /min 112/80 mm[Hg] Renetta Conley MA [facility] 04/02/2022 10:09:58 Date Recorded Body height Body mass index (BMI) Body weight Heart rate Oxygen saturation Oxygen saturation in Arterial blood by Pulse oximetry Systolic And Diastolic Provider Name and Address Organization Details Last Updated DateTime 165.1 cm 24 kg/m2 98732.4 g 107 /min 98 % 98 % 120/76 mm[Hg] Ludivina Santos MA [facility] 12:22:46 Date Recorded Systolic And Diastolic Provider Name and Address Organization Details Last Updated DateTime 08/20/2023 147/84 mm[Hg] Chely Talley, [employer] [address] [facility], [place], [address], [facility] 08/20/2023 10:05:06 Date Recorded Body weight Body mass index (BMI) Body height Heart rate Systolic And Diastolic Provider Name and Address Organization Details Last Updated DateTime 08/20/2023 94157.37 g 26.8 kg/m2 165.1 cm 89 /min 144/77 mm[Hg] Renetta Conley [facility] 08/20/2023 09:33:23 Social History Question Answer Notes LastModified by Organizat ion Details LastModified Time Tobacco Smoking Status Current Every Day Smoker 11/03 ppd Not Available [facility] 09/04/2020 03:17:56 Do You Have An Advance Directive? No [id number] Information not available 09/04/2020 Do You Wear A Helmet When Biking? Yes [id number] Information not available 09/04/2020 What Is Your Level Of Caffeine Consumption? Heavy 3 Cups Coffee Daily [id number] Information not available 09/04/2020 How Much Tobacco Do You Chew? None [id number] Information not available 09/04/2020 What Type Of Diet Are You Following? REGULAR [id number] Information not available 09/04/2020 Which Illicit Or Recreational Drugs Have You Used? None [id number] Information not available 09/04/2020 Education 12 Information not available 09/18/2011 How Many Days In The Past Year Have You Had A Heavy Drinking Consumption (4+ Female, 5+ Male)? 0 Information not available 06/27/2014 Are There Any Guns Present In Your Home? No [id number] Information not available 09/04/2020 Live Alone Or With Others? With Others Information not available 06/27/2014 Patient Has Health Care Proxy Signed And In Chart No [email or web address] Information not available 10/22/2018 Marital Status Dilip - Safe Relationship [email or web address] Information not available 06/27/2014 Mosquito Repellent Used Routinely Yes era Information not available 09/16/2016 What Was The Date Of Your Most Recent Tobacco Screening? 06/27/2022 [email or web address] Information not available 06/27/2022 How Many Children Do You Have? 2 Son, Daughter [id number] Information not available 09/04/2020 Are There Any Occupational Health Risks Where You Work? Travels A Lot Lots Of International Travel [id number] Information not available 09/04/2020 What Is Your Current Pack Years? 30ormorepa ckyears 1983 - 2013 Up To 1PPD, Quit For 6 Years Then Restarted, 1PPD And Gradually Reduced To 1/2 PPD Information not available 01/18/2025 Seat Belts Used Routinely Yes [email or web address] Information not available 09/18/2011 Are You Sexually Active? Yes [id number] Information not available 09/04/2020 Smoke Alarm In Home Yes [email or web address] Information not available 09/18/2011 How Much Tobacco Do You Smoke? 0.5 PPD Information not available 01/18/2025 General Stress Level Medium [email or web address] Information not available 09/18/2011 Do You Use Sunscreen Routinely? Yes [id number] Information not available 09/04/2020 Sex: Female Functional Status Question Answer Note LastModified by Organizat ion Details LastModified Time What is your level of alcohol consumption? Occasional 3 glass of wine/ week [email or web address] Information not available 10/17/2021 Are you currently employed? 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 Family History Relationship Description Onset Age of this Age Resolved Age Notes LastModified by Organization Details LastModified Time Father Diabetes mellitus [email or web address] Not available 2014 15:21:38 Father Myocardial infarction 60 [email or web address] Not available 07/10 15:21:38 Mother Hysterectomy benign tumor, fibroi ds Not available 10/17/2021 15:18:14 Sister Malignant neoplasm of uterus 60 Not available 2022 10:08:18 Notes:No inflam arthritis Medical History Condition Response Thyroid Disease N GASTROINTESTINAL Diabetes Type II N GERD Y Rheumatoid Arthritis N Irritable Bowel Syndrome Y Gynecological History Statement/Question Response Date of LMP 09/05/2017 Menses Monthly N Duration of Flow (days) 3 History of Abnormal Pap N Age at Menarche 12 Approximate Obstetrics History GPAL:G 0 P 0 0 0 0 Immunizations Vaccine Type Date Status Note Provider J Carlos e and Address Organization Details Recorded Time Tdap 2 completed Not Available [facility] 11/19/2019 02:15:45 Td (adult), 2 Lf tetanus toxoid, preservative free, adsorbed 1 completed [place] Marshall MA [facility] 10/17/2021 15:50:45 Past Encounters Encounter ID Performer Location Encounter Start Date Encounter Closed Date Diagnosis/Indication Diagnosis SNOMED-CT Code Diagnosis ICD10 Code Diagnosis Note [id number] MAN Lizarraga, [facility], OFFICE [address] [place] [address] 03/30/2007 13:50:50 03/31/2007 06:33:18 [id number] [facility] - [address] [address] 03/30/2007 14:51:19 03/30/2007 14:51:27 [id number] Nitesh Quispe PA-C , [facility], [address]ICE [address] [place] [address] 03/13/2008 15:40:36 11/22/2008 02:02:29 [id number] HEATHER Jimenez, [facility], OFFICE [address] [place] [address] 12/25/2008 09:31:56 12/27/2008 11:41:28 [id number] MAN Quiroz, [facility], [address]ICE [address] [place] [address] 01/16/2009 14:21:08 01/18/2009 08:31:09 [id number] Marty Valdez MD Rheumatol ogy, [address] [address] 01/17/2009 09:00:48 01/22/2009 11:18:56 [id number] [facility] , [address] [address] 01/17/2009 09:34:06 01/17/2009 17:58:15 [id number] Gildardo Camacho NP , [facility], OFFICE [address] [place] [address] 01/24/2009 10:52:50 01/25/2009 09:14:20 [id number] MD Bettie Mercado ginny, [address] [place] [address] 02/06/2009 08:49:17 02/07/2009 10:07:35 [id number] [facility] , [address] [place] [address] 01/17/2009 00:00:00 08/30/2009 02:00:52 [id number] [facility] - [address] [place] [address] 01/17/2009 09:48:43 01/17/2009 09:48:53 [id number] [facility] - [address] [place], [place] [address] 02/06/2009 09:12:31 02/06/2009 09:12:47 [id number] Kelly Phelps MD , [facility], OFFICE [address] [place] [address] [place] [address] 05/21/2010 16:10:36 05/22/2010 08:01:25 [id number] Aisha Lutz MD , [facility], OFFICE [address] [facility] [place] [address] 09/19/2010 15:00:46 09/20/2010 08:47:10 [id number] Aisha Lutz MD , [facility], OFFICE [address] [facility] [place] [address] 12/02/2011 14:58:28 12/02/2011 16:34:58 [id number] [facility] , [address] [place] [address] 01/22/2012 08:54:21 01/23/2012 13:20:39 [id number] Elina Green MD , [facility], OFFICE [address] [facility] [place], [place] [address] 02/15/2013 08:14:26 02/15/2013 09:42:51 [id number] Aisha Lutz MD FP, [facility], OFFICE [address] [facility] [place] [address] 06/13/2013 08:16:54 06/13/2013 09:31:18 Adult health examination 846322351 see Risk Assessment and Lifestyle Change Counseling section above Tobacco user 784711200 s he feels ambivilent about quitting. does not want any medication at this time. Screening for malignant neoplasm of cervix 049215144 Pelvic mass 52054452 Mas s felt over uterus. fibroid vs loop of bowel. Will check ultrasound . [id number] Krys Borges NP , [facility], OFFICE [address] [facility] [place] [address] 06/27/2014 09:33:36 06/27/2014 10:30:28 Adult health examination 860708926 see Risk Assessment and Lifestyle Change Counseling section above Counseling 991886323 Uterine prolapse 53750465 Mild, noted on exam today. Pt is symptomati c with urinary frequency, urgency, and stress incontinen ce. Refer to traffic observer to discuss pessary. [id number] HEATHER Dumont, [facility] OFF[facility] [address] [facility] [place] [address] 07/10/2015 14:48:57 07/10/2015 16:02:38 Lifestyle 862551736 Screening for malignant neoplasm of colon 927257987 Referred to GI - likely needs an upper endoscopy as well due to GERD. Adult [facility] th examination 211511723 see Risk Assessment and Lifestyle Change Counseling section above Counseling 818826526 Influenza vaccine needed 0745303678 106 Screening for malignant neoplasm of cervix 268027748 Gastroesop hageal reflux disease 072623603 Headache 83891517 Migrai nous in features, likely due to menopause. Reviewed hydration, exercise, stress management . Imitrex has worked well for her in the past. Anxiety 29094154 Increas ing recently with panic attacks, trouble sleeping, and intrusive thoughts. Reviewed treatment options for anxiety, including therapy, abortive medication s, and daily therapeuti c medication s. Discusses risks and benefits of each option. Will proceed with daily sertraline ; discussed risks, benefits, side effects, and limitation s of medication . She will RTO to f/u with me in 4-6 weeks. [id number] Krys Borges NP , [facility], OFFICE [address] [facility] [place] [address] 07/24/2016 10:09:45 07/24/2016 11:21:45 Breast lump 37786542 N63 New 5x5mm nodule to left breast at 4 o'clock, plan for STAT mammogram and breast ultrasound and F/U once results available [id number] Krys Borges NP , [facility], OFFICE [address] [facility] [place] [address] 09/16/2016 09:31:45 09/16/2016 10:10:59 Adult health examination 538959175 Z00.00 see Risk Assessment and Lifestyle Change Counseling section above Counseling 126847284 Z71 .9 Headache 34553819 R51 Migrainous in features, likely due to menopause. Reviewed hydration, exercise, stress management . Imitrex has worked well for her in the past. Insomnia 885669604 G47.0 0 Worse with long flights and internatio nal travel. Trial of low dose Ambien. Reviewed medication risks, benefits, side effects, and limitation s. Screening for disorder 641739744 Z11.59 [id number] Radha Cooper MD , [facility], OFFICE [address] [place] [address] [place] [address] 11/19/2016 10:10:50 11/19/2016 11:29:37 Dyspnea on exertion 96011229 R06.09 1 month of OLVERA. 30-pack year former smoker. ? cardiac vs pulm etiology.E CG with some inverted T-waves V2-V4.Will schedule ETT.Check CXR and labs.Trial albuterol prn.F/U 1 week. [id number] MD BAYLEE Cook, [facility], OFFICE [address] [facility] [place] [address] 12/01/2016 09:06:22 12/01/2016 10:42:00 Anemia 374368439 D64.9 s/p 2 U PRBCs. Suspected anemia of chronic disease. Iron low at 14 in hospital. Was started on iron supps.Will continue for now. Empyema 751795872 J86.9 Improving on repeat imaging.Co ntinue Augmentin for full course. F/U with thoracic surgery as scheduled. Lung mass 576801915 R91. 8 Awaiting biopsy results. Findings so far suggestive of infectious etiology, but malignancy not excluded.T horacic surg F/U scheduled 12/04/16. [id number] ANABELLA Richard , [facility], OFFICE [address] [place] [address] 03/17/2017 08:55:07 03/17/2017 11:25:53 Urinary tract infectious disease 42802398 N39.0 Patient instructed to push fluids, to follow up for persistent or worsening symptoms or fever or back pain. -Drink lots of fluids-Tyl enol/ibupr ofen for any aches or fevers-AZO is available over the counter to help with urinary symptoms for the first 2 days.-This should not affect your surgery scheduled for tomorrow, but let your surgeon know that you are on antibiotic s for a UTI. [id number] Mora Rose MD , [facility], OFF[address] [place] [address] 09/21/2017 09:35:42 09/21/2017 11:14:38 Adult health examination 159610250 Z00.00 see Risk Assessment and Lifestyle Change Counseling section above Counseling 835158980 Z71 .9 Elevated blood-pressure reading without diagnosis of hypertension 675660065 R03.0 BP today 136/80. Eats a lot of salt with food. Discussed salt alternativ es and decreasing salt. On repeat BP was 142/88. Will start low dose medication . Family his tory of Cardiovascular disease 783134138 Z82.49 Has not had recent labs. Given recent migraines, neuro symptoms, will check labs. Screening mammography 24 992098 Z12.31 Pt due for yearly screening mammogram. Lung mass 590737210 R91. 8 Findings showed aspiration pneumonia and a small pocket of infection, likely related to her Candelario's and GERD. There is no mass in her lungs. Migraine 61718838 G43.90 9 Has recently returned after not having for 20 years. Has had increased red wine recently. Unlikely TIA, more likely atypical migraine. Is overdue for an eye exam and discussed making appointmen t here with Dr Guidry. Will update basic labs to assess TIA risk. Controlls with imitrex currently. Discussed low threshold for going to ER. Neck pain 73740801 M54.2 Given patient's reports of changing headaches, muscle tension in her upper shoulders and neck, will order x-ray or c-spine. [id number] Dilip Bateman Jr. MD , [facility], OFFICE [address] [facility] [place] [address] 10/08/2018 09:46:53 10/08/2018 11:05:34 Adult health examination 236028853 Z00.00 see Risk Assessment and Lifestyle Change Counseling section above Counseling 343660950 Z71 .9 Depression screening 171 280708 Z13.89 depression screening tool administer ed, entered into emr, scored and discussed, time greater than 7.5 minutes Screening for malignant neoplasm of cervix 446115240 Z12.4 Routine pap performed. Cigarette smoker 7061539 7 F17.210 Patient has recently started smoking again. Advised on cessation. Aware of risks. Not interested in meds currently. Lives in [place] and does not wish to participat e with in house options. Advised to call if more support needed. Between 3-10 minutes spent in smoking cessation counseling . Tobacco user 629303024 Z 72.0 Elevated blood-pressure reading without diagnosis of hypertension 050639564 R03.0 Taking Lisinopril 10mg daily. Not monitoring at home. Denies any CP, palpitatio ns, dizziness. Exercises and low salt diet. Continue with meds and healthier lifestyle. Family his tory of Cardiovascular disease 474239420 Z82.49 Has not had recent labs. Given recent migraines, neuro symptoms, will check labs. Screening mammography 24 353022 Z12.31 Pt due for yearly screening mammogram. Migraine 12533706 G43.90 9 History of migraines, seemed to have gotten less frequent. Has noted them to be more so if she hasn't slept well. States with visual aura. Then pounding pain with some garbled speech. Having them every few months. Imitrex 50mg not effective. Increase dose to 100mg per dosing. [id number] Edy Alex MD , [facility], OFFICE [address] [facility] [place] [address] 03/29/2020 07:54:30 03/29/2020 10:27:42 Hypertensive disorder 02903175 I10 Doing occasional home BP monitoring . Today 130/75, a few weeks ago systolic was in the 140s. Will increase lisinopril to 20 mg. Advised checking home BP 2-3 times a week and to keep log. Reviewed red flag symptoms and when to call the office. Migraine 87514483 G43.90 9 Has noticed increased frequency in migraines at times related to her stress level. Will have 2-3 in a row and go months without them. She usually controls with imitrex but no longer effective. Will stop Imitrex and trial zomig [id number] Annie Greer MD , [facility], OFFICE [address] [facility] [place] [address] 10/17/2021 14:06:11 10/17/2021 16:17:05 Adult health examination 288948044 Z00.00 Her last PAP was 10/2018 and was normal Her last mammogram was 12/2018 Her last Tdap was 11/2011 She has not had her COVID vaccine as there has been concern from her doctors regarding her immune system. Counseling 921389297 Z71 .9 including cardiovasc ular risk reduction counseling Vitamin D 2000iu when she is not spending time outdoors with skin exposed to the sun. ---- Recommenda tions for calcium intake: Men and premenopau reza women should consume at least 1000mg/day Postmenopa usal women should consume about 1200-1500m g/day Avoid regularly taking more than this recommenda tion in supplement s due to associatio n with calcium in artery plaques. Aim for dietary calcium primarily. Your body absorbs and handles calcium in food better than supplement s. Dairy products are the primary sources. Food calcium (mg) milk, 8 ounces 300mg yogurt, 6 ounces 250mg orange juice fortified with calcium, 8 oz 300mg tofu with calcium (half cup) 435mg cheese (1 ounce) - hard cheese = higher calcium 195-335 mg Often calcium is in soy and almond products, so read nutrition labels to understand the milligrams per serving there. Depression screening 171 122578 Z13.31 depression screening tool administer ed, entered into emr, scored and discussed Screening for alcohol abuse 075438720 Z13.39 alcohol abuse screening tool administer ed, entered into emr, scored and discussed Cigarette smoker 3144795 7 F17.210 Smoking 1/2 PPD Screening for malignant neoplasm of cervix 175181133 Z12.4 Overdue for routine screening Active or passive immunization 127172530 Z23 Colitis 28680875 K52.9 S/P colectomy with iliostomy Swelling / lump finding 386198972 R22.30 Unclear etiologyWi ll review attached photos with Christina Banda follow up with patient once Christina can review photos. [id number] Kelly Phelps MD , [facility], OFFICE [address] [facility] [place] [address] 11/19/2021 08:49:22 11/19/2021 15:22:35 Neoplasm of uncertain behavior of skin of upper limb 55526368 D48.5 R extensor elbow, palisaded neutrophil ic granulomat ous dermatitis vs RA nodules ; sent for pathologyR TO in 10 days for suture removalpt advised may receive results over the portal before I have reviewed them.ERIC XT pic and pt info sent to [facility] with pt verbal consent Cigarette smoker 9699207 7 F17.210 Encouraged patient to cut back and consider cessation. Discussed risks associated with prolonged tobacco exposure. Reviewed cessation support options available through [facility] 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 She reports skin changes on the face.Incre ased centromere antibodies .Possibili ty of CREST. Will check labs and reassess. Chronic renal failure 90 206189 N18.9 No NSAIDs.Mon itor BP.Will check labs as above. Essential hypertension [id number] I10 Patient reports a previous history of hypertensi on and she was on lisinopril .Medicatio ns were stopped after her surgery as she was running low blood pressure.I n view of the worsening renal function, would recommend holter monitor to check BP at home, for 24-48 hours to rule out hypertensi on. Patient will discuss with pcp. Dyspnea on exertion 6084 5006 R06.09 In view of the possibilty of CREST, will check further testing. [id number] Dwain Hancock MD Rheumat[facility] [address] [place] [address] 01/27/2022 15:13:10 01/27/2022 15:55:28 CREST syndrome [id number] M34.1 Patient has Raynaud syndrome, calcinosis cutis, heartburn. She reports skin changes on the face.Incre ased centromere antibodies .Likely CREST, limited scleroderm a.No sclerodact sheila on exam.Will await work-up (PFTs, echo and CT and decide on treatment) . Chronic renal failure 90 814674 N18.9 No NSAIDs.Mon itor BP.Recheck levels. Dyspnea on exertion 6084 5006 R06.09 Check PFTs, echo and HRCT, in view of the diagnosis of CREST. [id number] Annie Greer MD , [facility], OFFICE [address] [place] [address] 04/02/2022 10:01:15 04/02/2022 10:58:14 Tobacco user 212139051 Z72.0 Screening mammography 24 487096 Z12.31 Pt due for yearly screening mammogram. Vaccine de clined by patient [id number] 02 Z28.20 covid CREST syndrome [id number] M34.1 Based on CREST criteriaRe cent diagnosis of calcinosis cutisHisto ry of Raynaud's phenomenon Has spider veinsHas sudden decreased GFR, which has since improvedCo nsidering changing rheumatolo gistsAfter discussion of potential treatments and further workups - will start minocyclin e and omeprazole Will also check systemic sclerosis panel Hypertriglyceridemia 302 094213 E78.1 11/23 - /404/44 /111Discus sed elevated triglyceri desDiscuss ed decreasing carbs, increasing cold water fish intake, work on adding some exercisesW ill repeat in 3 monthsIf continues elevated will start medication [id number] Edy Alex MD FP, [facility], OFFICE [address] [facility] [place] [address] 06/27/2022 12:16:51 06/27/2022 13:19:11 Ileostomy present 928900703 Z93.2 Ileostomy w/ intact, beefy-red stoma. Appliance intact w/ liquid brown output which pt states is normal for her. Colitis 26213950 K52.9 Hx of (?ischemic ) colitis s/p colectomy w/ creation of RLQ ileostomy (Aug 2020). Full records not available. Abdominal pain 04083856 R10.9 Recent diffuse abdominal discomfort and bloating/f ullness in her lower abdomen.Si gnificant improvemen t with liquid, soft/low fiber diet and heat/abdom inal massage.No current evidence of acute abdomen - belly is soft, non-disten ded w/o rebound tenderness .Reviewed indication s for ED visit/urge nt f/u and emphasized availabili ty of UC and on-call services. F/u PRN. [id number] MD BAYLEE KLINE, [facility], OFFICE [address] [facility] [place] [address] 08/20/2023 09:13:37 08/20/2023 10:40:14 Anxiety 94038868 F41.9 Chronic anxietyInc reased stress recentlyFe els like sertraline is very beneficial Will continue current plan Tobacco user 855683200 Z 72.0 We discussed your smoking today for more than 3 minutes. Cigarette use is the leading cause of preventabl e disease, disability , and in the [place]. We talked about tools and medication s available to help you in smoking cessation. We discussed utilizing our smoking cessation football coach and online resources. Vaccine de clined by patient [id number] 02 Z28.20 covid/flu Hypertensive disorder 38 839433 I10 Today 144/77 and 147/84Prev iously on lisinopril 10 mg dailyHer surgeon in [place] D/C'd it and told her that there was nothing wrong with her blood pressure.W ill restart her lisinopril at 10 mg dailyFollo w up BP clinic in 3-4 weeksFollo w up PCP 3 months CREST syndrome 53820687 M34.1 Based on CREST criteriaRe cent diagnosis of calcinosis cutisHisto ry of Raynaud's phenomenon Has spider veinsHas sudden decreased GFR, which has since improvedNe eds new rheumatolo gist - will refer to [facility] er discussion of potential treatments and further workups had a negative reaction to minocyclin e, continues on omeprazole Will also check EKG in office today and update yearly monitoring labs Ileostomy present 510443 002 Z93.2 s/p total colectomy in 2020No concerns Chronic ki dney disease stage 3 152497256 N18.30 Last kidney test on file 2Creat 1.2, GFR 53.1Discus sed importance of hydration, avoiding medication s that stress the kidneys like Ibuprofen or Aleve, maintainin g a healthy blood pressure and regular monitoring of her CREST syndrome Screening mammography 24 994053 Z12.31 Pt due for yearly screening mammogram. [id number] GERARDO Jarvis MD FP, [facility], OFFICE [address] [facility] [place] [address] 11/10/2023 08:11:00 11/10/2023 08:37:20 Vaccine declined by patient [id number] 02 Z28.20 covid/flu Nicotine dependence 5629 4008 F17.200 We discussed your smoking/va ping today for more than 3 minutes. Cigarette/ pod use is the leading cause of preventabl e disease, disability , and in the [place]. We talked about tools and medication s available to help you in smoking/va ping cessation. We discussed utilizing our smoking cessation football coach and online resources. CREST syndrome 81474006 M34.1 [place] new [place] in 2 weeksThumb has improvedLe ft elbow is more bothersome Hypertensive disorder 38 621925 I10 Will call in with home BP numbersCur rently on lisinopril 10 mg dailyRepor ts feeling better on BP medication Recent Creat 1.2, recent GFR 52.5Contin ue current plan at this time. Tinea pedis 8979377 B35. 3 Left footDiscus sed length of time required to resolve symptoms [id number] Edy Alex MD , [facility], OFFICE [address] [facility] [place] [address] 01/18/2025 15:52:13 01/19/2025 09:22:46 Nicotine dependence 60643082 F17.200 Smoking She smokes approximat kristan half a pack per day and expresses a desire to quit, influenced by her spouse's smoking habits. She previously quit for six years using Chantix and is willing to try generic Chantix (varenicli ne) again. A prescripti on for generic Chantix (varenicli ne) will be provided to aid smoking cessation. We discussed your smoking/va ping today for more than 3 minutes.Sm oking tobacco is the leading cause of preventabl e disease, disability , and in the [place]. Inhaling aerosolize d nicotine is widely believed to be safer than combustibl e tobacco, but still exposes people to numerous harmful substances , heavy metals like lead, and cancer-cau sing agents. Nicotine is harmful to developing brains and can disrupt the formation of brain circuits that control attention, learning, and susceptibi lity to addiction. We talked about tools and medication s available to help you in smoking/va ping cessation. We discussed utilizing our smoking cessation football coach and online resources. Hypertensive disorder 38 208145 I10 Hypertensi onBlood pressure is well-contr olled at 122/70 mmHg on lisinopril 10 mg every other day. She experience s dizziness with a 10 mg daily dose and was previously on 5 mg without dizziness. Reducing lisinopril to 5 mg daily is advised, with home monitoring to ensure blood pressure remains below 130/80 mmHg. Anxiety 24538077 F41.9 Anxiety She deals with chronic anxiety. She finds that the sertraline is very effective. Will continue current treatment plan. Fish's esophagus 3029 81659 K22.70 Fish's EsophagusB arrett's esophagus is managed with omeprazole . The last endoscopy was over four years ago. She reports heartburn and concerns about long-term PPI use. Risks of PPIs, including increased osteoporos is risk, were discussed. An endoscopy is needed to monitor for changes. Referral to [facility] for endoscopy and evaluation is planned. Scleroderma 262863554 M3 4.9 Scleroderm a with CREST syndromeTh e patient has scleroderm a with CREST syndrome, Fish's esophagus, and a history of intestinal surgery resulting in an ileostomy. There has been no recurrence of growths since October. She reports shortness of breath and occasional cough, typically in winter. The last echocardio gram in April 2024 was unremarkab le, and pulmonary function tests (PFTs) have not been done since 2021. Kidney function has declined from 52.5 to 47 since November 2023. The risk of pulmonary arterial hypertensi on with scleroderm a was discussed. Plan includes ordering PFTs and a urine test for proteinuri a, referring to [facility] for esophageal evaluation , and sending PFT and recent lab results to Simon noel. A discussion with rheumattonny noel about potential kidney workup and BNP testing is needed. Ileostomy present 732915 002 Z93.2 s/p total colectomy in 2019No concerns CREST syndrome 93586868 M34.1 Scleroderm a with CREST syndromeTh e patient has scleroderm a with CREST syndrome, Fish's esophagus, and a history of intestinal surgery resulting in an ileostomy. There has been no recurrence of growths since October. She reports shortness of breath and occasional cough, typically in winter. The last echocardio gram in April 2024 was unremarkab le, and pulmonary function tests (PFTs) have not been done since 2021. Kidney function has declined from 52.5 to 47 since November 2023. The risk of pulmonary arterial hypertensi on with scleroderm a was discussed. Plan includes ordering PFTs and a urine test for proteinuri a, referring to [facility] for esophageal evaluation , and sending PFT and recent lab results to Simon noel. A discussion with mary noel about potential kidney workup and BNP testing is needed. Hyperlipidemia 69587822 E78.5 Hyperlipid emiaCholes terol levels are well-contr olled on atorvastat in. Concerns about statin side effects were addressed, noting that studies show benefits and no support for concerns about dementia and liver issues. The atorvastat in prescripti on will be renewed. Coronary arteriosclerosis 72719145 I25.10 Coronary Atheroscle rosisThere is coronary artery calcificat ion, with cholestero l well-contr olled on atorvastat in. While cholestero l reduction may improve calcificat ion, it will not eliminate it. Continued monitoring is important. A low-dose CT scan for lung cancer screening is ordered due to smoking history. Health Concerns Section Related Observation LastModified by Organization Detai ls LastModified Time None Recorded Concern Status LastModified by Organization Details LastModified Time None Recorded Advance Directives Directive N: Payers Insurance Date Sequence Insurance Name Policy Number Policy Bonner Covered Member ID Bonner Member ID Guarantor Name 05/22/2025 1 [place] [id number] Sherrie L Selicious [id number] Sherrie L Selicious 11/13/2021 1 [place]UE (O) [id number] Sherrie L Selicious [id number] Sherrie L Selicious 11/13/2021 1 [facility] [id number] Sherrie L Selicious [id number] Sherrie L Selicious 11/13/[address] [place] [address] (O) [id number] Sherrie L Selicious [id number] Sherrie L Selicious Notes Date Note Type Note Provider Name and Address Organization Details Recorded Time 2 text/html a/vmg-smoking [id number] by PatientHPIFor importance, patient reportson a scale of 1-10 with 1 being not important and 10 being very important the patient rates importance of stopping smoking / vaping as 4. For confidence, patient reportson a scale of 1-10 with 1 being not confident and 10 being very confident the patient rates confidence on stopping smoking / vaping as 7. For readiness to quit smoking/vaping, patient reportson a scale of 1-10 with 1 being not ready and 10 being very ready the patient rates readiness to stop smoking /vaping as 6. For physiological dependence/health risk, patient reportscurrently smoking 10 cigarettes per dayandpatient has first cigarette / vaping session greater than 30 minutes after awakening.ROS as noted in the HPI She has had [address] Hancock. She has had her spirometry done, her chest CT done, her echocardiogram done and sees cardiology next week. Some of the calcifications in her elbows and fingers are sore. She has noted a return of her reflux. She is supposed to see Dr Hancock tomorrow but is not sure she wants to keep the appointment. Annie Greer MD [address] [place] [address], [phone], [facility] 04/09/2022 08:39:08 2 text/html a/vmg-Smoking CessationReported by PatientHPIFor readiness to quit smoking, patient reportspatient is considering stopping smoking in the next 6 months.. For duration, patient reportscurrently smoking 10 cigarettes per day. Sherrie is a 57-year-old who presents today for a same day visit to discuss: Concern: requesting GI referral for ileostomy care Has had issues prior to that, will be 2 yrs since she had the ostomy created (August 2020).Blckage occurred, nearly killed her.She had moved to [place] and was down there for about 3 years. Last August she ended up in the hospital and had a complete colectomy and now has an iliostomy. She was told by her doctor there that there is concern for an underlying auto-immune condition that caused this. ?underlying autoimmune disease.Recently diagnoesed with [facility] or scleraderma limited. 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 Uses all [place] supplies.\ has had it since aug 2020 Elina Green MD [address] [place] [address], [phone], [facility] 09/18/2022 19:18:41 3 text/html a/vmg-smoking [id number] by PatientHPIFor confidence, patient reportson a scale of 1-10 with 1 being not confident and 10 being very confident the patient rates confidence on stopping smoking / vaping as 1. For readiness to quit smoking/vaping, patient reportson a scale of 1-10 with 1 being not ready and 10 being very ready the patient rates readiness to stop smoking /vaping as 1. For physiological dependence/health risk, patient reportscurrently smoking 10 cigarettes per dayandpatient has first cigarette / vaping session within 30 minutes after awakening.ROS as noted in the HPI Her right 4th finger has calcium deposit present. Sometimes it comes up to the surface and and she tries to pick the crystals out. Currently the tip of her 4th finger is swollen, red, tender, warm. Her dad passed in July 2022, she lost her sister in May 2023. She is struggling with the loss of her sister. She had a terrible queen with uterine cancer, leukemia, graft vs host disease. She has been under stress and and has gained some weight. She needs a refill on some of her medications GERARDO BARKSDALE MD [address] [place] [address], [phone], [facility] 08/28/2023 09:29:08 4 text/html a/vmg-smoking [id number] by PatientHPIFor confidence, patient reportson a scale of 1-10 with 1 being not confident and 10 being very confident the patient rates confidence on stopping smoking / vaping as 1. For readiness to quit smoking/vaping, patient reportson a scale of 1-10 with 1 being not ready and 10 being very ready the patient rates readiness to stop smoking /vaping as 1. For physiological dependence/health risk, patient reportscurrently smoking 10 cigarettes per dayandpatient has first cigarette / vaping session within 30 minutes after awakening.ROS as noted in the HPI Due to the COVID-19 pandemic, today's visit is conducted utilizing synchronous audio and video communication between the provider and patient via a HIPPA compliant portal: tremaine. Pt verbally consented to this virtual visit, and understands it will be billed to insurance the same as if they are in the office. Based off the need for the visit, I have determined that the visit can be provided by this transmission method. Pt was informed that if there is a need to see a provider in-person in the event of worsening symptoms, they can call the office. The telehealth services are rendered while I am at home and the patient is at her home. She has had a cold on and off for months. It goes away and then comes back. She did test for COVID and was negative. Her cough is a dry cough but then she will get post nasal drip and the cough gets junky. She is seeing the burglar alarm inspector later this month. Her left elbow is really bothering her. It is red but not swollen but it feels like it is. She has noticed since being on the BP medication she feels better. She does not get as winded as she was before starting it. She has not been checking it at home. She is dealing with Athlete's foot on her left between the 4th and 5th toes. She has tried tinactin, hydrogen peroxide. GERARDO BARKSDALE MD [address] [place] [address], [phone], [facility] 11/10/2023 13:04:13 5 text/html a/vmg-smoking [id number] by PatientHPIFor importance, patient reportson a scale of 1-10 with 1 being not important and 10 being very important the patient rates importance of stopping smoking / vaping as 8. For confidence, patient reportson a scale of 1-10 with 1 being not confident and 10 being very confident the patient rates confidence on stopping smoking / vaping as 1. For readiness to quit smoking/vaping, patient reportson a scale of 1-10 with 1 being not ready and 10 being very ready the patient rates readiness to stop smoking /vaping as 1. For physiological dependence/health risk, patient reportscurrently smoking 10 cigarettes per day (up to 1/2 ppd, sometimes less.)andpatient has first cigarette / vaping session within 30 minutes after awakening. For medication assessment, patient reportshas used chantix in the past.ROS as noted in the HPI Sherrie consented to the use of ambient AI software to record and transcribe notes during this visit The patient, with scleroderma, presents for follow-up regarding scleroderma and related symptoms.The patient has been managing scleroderma under the care of a burglar alarm inspector in [place]. Recently, there was a change in her burglar alarm inspector, and she has not yet met the new doctor. 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 There has been no recurrence of the calcinosis since October. She has a history of Fish's esophagus and underwent a Vinnie fundoplication in the past. She has not had an endoscopy in several years. She also has a history of a total colectomy and currently has an ileostomy, with no recent gastrointestinal issues reported.She experiences significant shortness of breath with strenuous activities, which she attributes to a sedentary lifestyle and lack of regular exercise, especially during the winter months. 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 She has not had a pulmonary function test recently, which was previously scheduled by her burglar alarm inspector but not completed.She is on lisinopril 10 mg for blood pressure management, which causes dizziness when taken in the morning. To manage the dizziness, she has been taking it every other day. Previously, her burglar alarm inspector had reduced the dose to 5 mg, which did not cause dizziness. She is also on atorvastatin and has concerns about potential side effects but has not experienced any issues. She takes omeprazole for Fish's esophagus.Her kidney function has been declining, with a recent measurement of 47, down from 52.5 in November 2023. She is monitoring her hydration status.She smokes about half a pack of cigarettes a day, although she often smokes less due to being busy. She has previously quit smoking for six years using Chantix. Chely Talley, [address], [place], [phone], [facility] 01/18/2025 22:21:05 OBGyn Episode No OBEpisode recorded.
[2025-05-25 07:34] VITALS: BP 110/68; PULSE 60; BMI 26.3
--- NOTE | 2025-05-25 07:34 | A.OFFVIS_ITS ---
Vital Signs 05/25/25 07:34 Height 5 ft 5 in Weight 158 lb 1.143 oz BMI 26.3 BP 110/68 Blood Pressure Location Lt brachial Position Sitting Pulse 60 Pulse Source Pulse Oximeter Intake Visit Reasons: CREST Intake Note: Patient last seen by Doctor Darryl Hood on 11/16/24. Presents today for Crest follow up and test results. Allergies minocycline Allergy (Mild, Verified 05/25/25 07:36) Hives Sulfa (Sulfonamide Antibiotics) Allergy (Mild, Verified 05/25/25 07:36) Rash sulfamethoxazole (From Bactrim) Allergy (Mild, Verified 05/25/25 07:36) Rash trimethoprim (From Bactrim) Allergy (Mild, Verified 05/25/25 07:36) Rash HPI Comments Details: Patient is a 60 y.o. 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 She states that she was diagnosed with Raynaud's affecting her hands and toes when she was in her 20s. She states that she has had GERD for many years. She had a esophageal procedure for her GERD, likely fundoplication around 2017. She states that she has had constipation for many years. She would have weeks of constipation and episodes with repeated vomiting. She would get admitted for a few days and symptoms would eventually resolved. However in 2019, she became septic and eventually had a total colectomy s/p ileostomy. Since then she has not had any significant diarrhea or constipation. She continues to have GERD. She has known history of Fish's esophagus. She takes omeprazole daily. She states that she sleeps using 2 pillows. Wakes up with a cough. She states that she has been a little more short of breath recently, her blood pressure was elevated and her PCP started her on lisinopril 10 mg daily with improvement of blood pressure and her shortness of breath. 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 She has pain both elbows, she has calcium deposits on both elbows, which are painful as well as calcium deposits on the left thumb and right ring finger. She states that she continues to have Raynaud's episodes. She uses gloves and glove warmers. Has not had any recent episodes of prolonged ischemia. She denies any skin thickening. She has been having some pain in the base of both thumbs and her knees. She is unaware of any family history of autoimmune rheumatic disease. She denies any weight loss or fevers. She had 2 pregnancies and no abortions or miscarriages. Current Rheumatology Medication(s): [facility] [place] Medical History Scleroderma Chronic renal insufficiency Hypertension Barretts esophagus GERD (gastroesophageal reflux disease) Anxiety Migraine Raynaud phenomenon Calcinosis cutis CREST syndrome Ileostomy in place Surgical History History of repair of hiatal hernia H/O total colectomy Family History Mother Hx of hysterectomy Father Diabetes Myocardial infarction, Onset Age: 60 Sister Malignant neoplasm of uterus Social History Household Members: Spouse Are you a primary acute care certified nursing assistant to a significant other at home: No Do you presently have visiting nurse or other home services: No Alcohol intake: current Alcohol intake frequency: a few times a week Patient Tobacco Use Status: Current everyday Tobacco user Tobacco use type: Cigarette Cigarettes Per Day: 10 Current occupational status: employed 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, 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 Review of Systems Const Details: Review of Systems Constitutional: Denies fever, chills, weight loss ENT: Denies vision changes, eye pain or eye redness, dental caries, dry mouth GI: Denies nausea, vomiting, diarrhea, abdominal pain, change in BM Pulm: Denies SOB, OLVERA, hemoptysis, wheezing Cards: Denies chest pain, palpitations Skin: Denies rash, nail changes, photosensitivity, [employer]: Denies headaches, weakness, paresthesias, recurrent falls MSK: as per HPI All other systems reviewed and are unremarkable except noted above Physical Exam Exam Exam: Vital signs reviewed Physical Examination CONSTITUITIONAL Patient alert and cooperative. Well appearing and in no apparent painful distress MSK Hands * Right Hand: Able to make a fist. No swelling or tenderness to palpation of these joints. * Left Hand: Able to make a fist. No swelling or tenderness to palpation of these joints. * Herbedens nodes noted bilaterally * Calcinosis nodules noted to the pulps of fingers Wrists * Right Wrist: Full ROM. 70 degrees of wrist flexion, 80 degrees of wrist extension. No swelling or TTP * Left Wrist: Full ROM. 70 degrees of wrist flexion, 80 degrees of wrist extension. No swelling or TTP Elbows * Right Elbow: Full ROM. No swelling or TTP. No TTP of the medial and lateral epicondyles * Left Elbow: Full ROM. No swelling or TTP. No TTP of the medial and lateral epicondyles * calcinosis depositis noted to the extensor surface of left elbow Shoulders * Right shoulder: Full ROM. No swelling noted. No TTP of the AC joint, subacromial bursa or posterior shoulder * Left shoulder: Full ROM. No swelling noted. No TTP of the AC joint, subacromial bursa or posterior shoulder Knees * Right knee: Full ROM. No swelling noted. No TTP of the knee joint lie or pes anserine bursa * Left knee: Full ROM. No swelling noted. No TTP of the knee joint lie or pes anserine bursa. Ankles * Right ankle: Good ankle dorsiflexion and plantar flexion. No swelling. No TTP of the ankle joint * Left ankle: Good ankle dorsiflexion and plantar flexion. No swelling. No TTP of the ankle joint Feet * Right foot: Negative squeeze test * Left foot: Negative squeeze test Tender points? * No tenderness to palpation of the bilateral trapezius, supraspinatus, anterior costochondral junctions, bilateral suboccipital muscle insertions SKIN No rashes Vital Signs: Last Vital Signs Pulse 60 05/25/25 07:34 BP 110/68 05/25/25 07:34 BMI result Body Mass Index 26.3 Results Reviewed Results Reviewed: ECHO 04/2024 Conclusions: - Normal left ventricular size and systolic function. There is mildly increased left ventricular wall thickness. The visually estimated ejection fraction is between 55-60%. - Normal right ventricular cavity size and systolic function. - Normal global longitudinal strain -18%. Findings Left Ventricle Normal left ventricular size and systolic function. There is mildly increased left ventricular wall thickness. The visually estimated ejection fraction is between 55-60%. There is no evidence of regional wall motion abnormalities. Diastolic function is normal for age. Right Ventricle Normal right ventricular cavity size and systolic function. Atria The left atrium is normal in size. The right atrium is normal in size. Aortic Valve Normal aortic valve structure and function. There is no aortic valve stenosis. There is no aortic valve regurgitation. Mitral Valve The mitral valve appears normal. There is no mitral valve regurgitation. There is no mitral valve stenosis. Pulmonic Valve The pulmonic valve is likely normal. Tricuspid Valve Normal tricuspid valve structure. There is trace tricuspid valve regurgitation. Tricuspid regurgitation envelope is inadequate for calculation of right ventricular systolic pressure. Normal right atrial pressure. Great Vessels All visible segments of the aorta are normal in size. The visualized portions of the pulmonary artery and branches are normal. Venous The inferior vena cava is normal in size and collapses greater than 50% with inspiration. Assessment & Plan Assessment & Plan (1) CREST syndrome: Comment: Raynaud's since 20s, calcinosis cutis, esophageal dysmotility, telangiectasias +++ centromere antibody Code(s): M34.1 - CR(E)ST syndrome Category: Medical Plan: #Ltd systemic sclerosis Patient is a 60 year old female with Ltd cutaneous systemic sclerosis here today for follow up Current complaints are Raynaud's and the calcinosis Recommended continued conservative measures for her Raynaud's and that she can follow up with surgery for her calcinosis. I did mentioned that she could consider sodium thiosulfate intralesional injections which may help to reduce the size of the calcinosis lesions but she preferred to proceed with surgery Echo done 2023 without any evidence of pulmonary hypertension Need to follow up PFTs but no evidence of shortness of breath on history Plan - ECHO every 2-3 years - PFTs every 2-3 years - RTC 6 months - 1 year Plan I spent 20 minutes reviewing the record and labs, taking a history, examining the patient, discussing the treatment plan, ordering diagnostic work up and documenting in the medical record Coding Level of Care Code Est Pt Level 3 (69594) Complex EM visit Add On G2211 Diagnoses CREST syndrome M34.1
== END 2025-05-25 08:05 | disposition home or self-care (01) ==
LOC: HO.RHE 07:22
PROVIDERS: PCP Nurse Practitioner Family; Visit Provider Student in an Organized Health Care Education/Training Program
DX: M34.1 CR(E)ST syndrome (principal)
CPT/HCPCS: 99213